=== PATIENT | male | born 2000 | race Caucasian/White ===

== ENCOUNTER 2018-12-11 14:23 | Emergency (ER) | payer MEDICAID ==
--- NOTE | 2018-12-11 16:11 | ED Physician Documentation ---
PD HPI LOWER EXT INJURY - Stated complaint Stated Complaint: INGROWN TOENAIL - Chief complaint Chief Complaint: Heent - History obtained from History obtained from: Patient - History of Present Illness PD HPI LOW EXT INJURY LOCATION: Right, Toe (great toe) Type of injury: Other (cut my toenail wrong.) Timing - onset: How many months ago (3 or 4 months ago) Worsened by: Moving, Palpating Associated symptoms: Swelling, Discolored Similar symptoms before: Has not had sx before - Additional information Additional information: The patient is a 18-year-old male who states he cut his left toenail wrong about 3 or 4 months ago, and then his toenail grew back "wrong." He has had pain and swelling at the medial aspect of the great toenail on his right foot since that time. He denies fever, numbness or weakness. He denies history of similar symptoms in the past. Review of Systems Constitutional: denies: Fever Skin: denies: Rash Musculoskeletal: reports: Extremity swelling (right great toe) Neurologic: denies: Focal weakness, Numbness PD PAST MEDICAL HISTORY - Past Medical History Past Medical History: No Endocrine/Autoimmune: None - Present Medications Home Medications: Ambulatory Orders Medication Instructions Recorded Confirmed cephALEXin [Cephalexin] 500 mg PO TID #20 tablet 12/11/18 - Allergies Allergies/Adverse Reactions: Allergies Allergy/AdvReac Type Severity Reaction Status Date / Time No Known Drug Allergies Allergy Verified 12/11/18 14:28 - Social History Does the pt smoke?: No Smoking Status: Never smoker PD ED PE NORMAL - Vitals Vital signs reviewed: Yes (Borderline systolic hypertension initially.) - General General: Alert and oriented X 3, Well developed/nourished - HEENT HEENT: Atraumatic - Respiratory Respiratory: No respiratory distress - Derm Derm: No rash - Extremities Extremities: Other (There is swelling and erythema at the medial aspect of his right great toenail, consistent with ingrown toenail. There is scant blood in the crease where the toenail transitions to the perionychium. Distal neurovascular is intact.) - Neuro Neuro: Alert and oriented X 3, No motor deficit, No sensory deficit Results - Vitals Vitals: Vital Signs - 24 hr 12/11/18 12/11/18 14:29 17:03 Temperature 36.7 C Heart Rate 68 78 Respiratory 16 16 Rate Blood Pressure 147/51 H 135/72 H O2 Saturation 99 99 Oxygen O2 Source Room air Procedures - General procedure General procedure: Excision of ingrown toenail right great toe. Digital nerve block using 1% lidocaine---good anesthetic effect. Excision medial aspect of nail---no purulent drainage. Tolerated well. Cephalexin administered. PD MEDICAL DECISION MAKING - ED course Complexity details: considered differential, d/w patient, d/w family ED course: The patient's presentation is significant for a an ingrown toenail of the right great toe. The medial paronychia is infected, without abscess. Treatment in the emergency department included excision of the ingrown toenail after digital block was performed using 1% lidocaine. Cephalexin 500 mg administered orally. Antibiotic ointment and gauze dressing was applied. I discussed with the patient and his father the expected course of healing, antibiotic treatment and outpatient follow-up, as well as potentially worrisome signs or symptoms that should prompt reevaluation in the emergency department. Departure - Departure Disposition: 01 Home, Self Care Clinical Impression: Ingrown right big toenail Condition: Stable Instructions: ED Ingrown Toenail Excised Prescriptions: cephALEXin [Cephalexin] 500 mg PO TID #20 tablet Comments: Keep your right foot elevated as much of the time as possible. Take cephalexin 3 times daily as prescribed. You can use Tylenol or ibuprofen if needed for pain or discomfort. Follow-up with primary physician within 2 weeks if possible. Call to schedule appointment. Return to the emergency department if you develop increasing pain, swelling, or otherwise worsening symptoms. Forms: Activity restrictions Discharge Date/Time: 12/11/18 17:07
[2018-12-11] MEDS ORDERED: cephALEXin 250 MG CAPSULE PO STA (16:50)
[2018-12-11] MEDS ORDERED: BACITRACIN OINT TOP ONE (16:53)
[2018-12-11 17:06] VITALS: BP 135/72
== END 2018-12-11 17:07 | disposition home or self-care (01) ==
LOC: ED 14:23
DX: L60.0 Ingrowing nail (principal); L03.031 Cellulitis of right toe
CPT/HCPCS: 11730; 99283; A9270

== ENCOUNTER 2019-01-25 12:31 | Emergency (ER) | payer MEDICAID ==
[2019-01-25 12:42] VITALS: BP 142/61
--- NOTE | 2019-01-25 14:56 | ED Physician Documentation ---
PD HPI SKIN - Stated complaint Stated Complaint: INGROWN TOENAIL - Chief complaint Chief Complaint: General - History obtained from History obtained from: Patient - History of Present Illness Timing - onset: How many days ago (several) Timing - duration: Days Timing - details: Abrupt onset (has had increased redness and swelling around toe quickly over just few days.), Still present Location: RLE (great toe nailbed) Quality / character: Painful, Discolored (red), Swelling Review of Systems Constitutional: denies: Fever, Chills Skin: reports: Lesions (redness around great toe) PD PAST MEDICAL HISTORY - Past Medical History Endocrine/Autoimmune: None - Present Medications Home Medications: Ambulatory Orders Medication Instructions Recorded Confirmed Doxycycline Hyclate 100 mg PO BID #14 capsule 01/25/19 Mupirocin 1 applic TP TID #15 g 01/25/19 Tramadol HCl 50 mg PO Q6H PRN #15 tablet 01/25/19 - Allergies Allergies/Adverse Reactions: Allergies Allergy/AdvReac Type Severity Reaction Status Date / Time No Known Drug Allergies Allergy Verified 01/25/19 12:42 - Social History Does the pt smoke?: No Smoking Status: Never smoker PD ED PE NORMAL - Vitals Vital signs reviewed: Yes - General General: Alert and oriented X 3, No acute distress, Well developed/nourished - Derm Derm: Normal color, Warm and dry - Extremities Extremities: Other (right great toe with redness and swelling and seems slightly ingrown nail at lateral corner. Some hypertrophic granulation tissue at medial corner. ) - Neuro Neuro: No motor deficit, No sensory deficit Results - Vitals Vitals: Oxygen O2 Source Room air Procedures - General procedure General procedure: scissors used to trim ingrown corner of nail without needing anesth. Departure - Departure Disposition: Home, Self Care Clinical Impression: Paronychia due to ingrown nail Condition: Stable Record reviewed to determine appropriate education?: Yes Instructions: ED Paronychia Ch Follow-Up: [facility] [Provider Group] Prescriptions: Doxycycline Hyclate 100 mg PO BID #14 capsule Mupirocin 1 applic TP TID #15 g Tramadol HCl 50 mg PO Q6H PRN #15 tablet PRN Reason: Pain Comments: Soak the toe in warm water couple times a day and apply mupirocin topical antibiotic. It does look like there is infection in the tissue around the nail so we will go with some oral antibiotics as well, doxycycline twice daily. Use an anti-inflammatory such as ibuprofen or naproxen. Add Tylenol if needed for pain. Can follow-up with the residential insurance inspector to see if they have more suggestions about this being recurrently ingrowing. I provided a referral name up in [place]. Discharge Date/Time: 01/25/19 15:29
[2019-01-25] MEDS ORDERED: MUPIROCIN 2% OINT 1 GM TOP STA (15:17)
[2019-01-25] MEDS ORDERED: IBUPROFEN 600 MG TABLET PO STA (15:17)
[2019-01-25] MEDS ORDERED: traMADol 50 MG TABLET PO STA (15:17)
[2019-01-25] MEDS ORDERED: DOXYCYCLINE 100 MG TABLET PO STA (15:17)
== END 2019-01-25 15:29 | disposition home or self-care (01) ==
LOC: ED 12:31
DX: L03.031 Cellulitis of right toe (principal); L60.0 Ingrowing nail
CPT/HCPCS: 99283; A9270

== ENCOUNTER 2020-01-26 08:54 | Outpatient (CLI) | payer SELFPAY | END 2020-01-26 08:55 | disposition critical access hospital (66) | LOC: EMS 08:54 | PROVIDERS: ATTEND Surgery | DX: K92.0 Hematemesis (principal) | CPT/HCPCS: A0425; A0427 ==

== ENCOUNTER 2020-01-26 09:26 | Emergency (ER) | payer SELFPAY ==
--- NOTE | 2020-01-26 09:40 | ED Physician Documentation ---
PD HPI NVD - Stated complaint Stated Complaint: VOMITING - History obtained from History obtained from: Patient - History of Present Illness Timing - onset: Enter time (0200), Last night Timing - duration: Hours Timing - details: Abrupt onset, Still present Associated symptoms: Abdominal pain, Hematemesis Contributing factors: Alcohol use Improved by: Vomiting, Meds Similar symptoms before: Has not had sx before Recently seen: Not recently seen - Additonal information Additional information: Previously well 19-year-old male went out fishing with his uncle over the weekend and started drinking again he usually has a pattern of binge drinking and he drank for 4 days straight. He developed nausea and vomiting beginning last night as well as some nominal pain and when he developed coffee-ground emesis she became concerned and called the ambulance. He is not lightheaded or dizzy he is nauseous and after receiving 4 mg of Zofran in the ambulance he feels much improved. He is received a liter of fluid as well. He is otherwise been well and denies any recent illness. Review of Systems Constitutional: denies: Fever, Chills Eyes: denies: Decreased vision Ears: denies: Ear pain Nose: denies: Rhinorrhea / runny nose, Congestion Throat: denies: Sore throat Cardiac: denies: Chest pain / pressure, Palpitations Respiratory: denies: Dyspnea, Cough GI: reports: Abdominal Pain, Nausea, Vomiting, Hematemesis : denies: Dysuria, Frequency Skin: denies: Rash Musculoskeletal: denies: Neck pain, Back pain, Extremity pain PD PAST MEDICAL HISTORY - Past Medical History Endocrine/Autoimmune: None - Present Medications Home Medications: Ambulatory Orders Medication Instructions Recorded Confirmed Ondansetron Odt [Zofran] 4 mg TL Q6H PRN #10 tablet 01/26/20 - Allergies Allergies/Adverse Reactions: Allergies Allergy/AdvReac Type Severity Reaction Status Date / Time No Known Drug Allergies Allergy Verified 01/26/20 09:42 - Social History Does the pt smoke?: No Smoking Status: Never smoker PD ED PE NORMAL - Vitals Vital signs reviewed: Yes (Hypertensive) - General General: Alert and oriented X 3, No acute distress, Well developed/nourished - HEENT HEENT: Atraumatic, PERRL, EOMI - Neck Neck: Supple, no meningeal sign, No bony TTP - Cardiac Cardiac: RRR, No murmur - Respiratory Respiratory: No respiratory distress, Clear bilaterally - Abdomen Abdomen: Normal bowel sounds, Soft, Non tender, Non distended, No organomegaly - Back Back: No CVA TTP, No spinal TTP - Derm Derm: Normal color, Warm and dry, No rash - Extremities Extremities: No deformity, No edema, No calf tenderness / cord - Neuro Neuro: Alert and oriented X 3, healthcare business analyst 2-12 intact, No motor deficit, No sensory deficit, Normal speech Eye Opening: Spontaneous Motor: Obeys Commands Verbal: Oriented GCS Score: 15 - Psych Psych: Normal mood, Normal affect Results - Vitals Vitals: Vital Signs - 24 hr 01/26/20 09:28 Temperature 37.5 C Heart Rate 92 Respiratory 16 Rate Blood Pressure 137/86 H O2 Saturation 97 Oxygen O2 Source Room air - Labs Labs: Laboratory Tests 01/26/20 01/26/20 01/26/20 09:38 09:55 09:55 WBC 6.2 RBC 4.86 Hgb 15.2 Hct 43.4 MCV 89.3 MCH 31.3 H MCHC 35.0 RDW 11.9 L Plt Count 231 MPV 9.5 Neut # (Auto) 3.8 Lymph # (Auto) 2.0 [place] # (Auto) 0.4 Eos # (Auto) 0.0 Baso # (Auto) 0.0 Absolute Nucleated RBC 0.00 Nucleated RBC % 0.0 Sodium 142 Potassium 3.6 Chloride 105 Carbon Dioxide 24 Anion Gap 13.0 BUN 8 Creatinine 0.8 Estimated GFR (MDRD) 122 Glucose 95 Calcium 8.1 L Total Bilirubin 1.1 H AST 20 ALT 18 Alkaline Phosphatase 64 Total Protein 6.6 L Albumin 3.8 Globulin 2.8 Albumin/Globulin Ratio 1.4 Lipase 24 Urine Color DARK YELLOW Urine Clarity CLEAR Urine pH 7.0 Ur Specific [place] 1.010 Urine Protein NEGATIVE Urine Glucose (UA) NEGATIVE Urine Ketones NEGATIVE Urine Occult Blood NEGATIVE Urine Nitrite NEGATIVE Urine Bilirubin NEGATIVE Urine Urobilinogen 0.2 (NORMAL) Ur Leukocyte Esterase NEGATIVE Ur Microscopic Review NOT INDICATED Urine Culture Comments NOT INDICATED Ethyl Alcohol 164.5 PD MEDICAL DECISION MAKING - ED course Complexity details: reviewed old records, reviewed results, re-evaluated patient, considered differential, d/w patient ED course: Previously well 19-year-old male presents to the emergency department with vomiting after drinking excessive alcohol. He had some coffee grounds in the vomitus as well as some small specks of blood and he became concerned. He has come to the emergency department he is hypertensive and feeling improved after receiving Zofran in the field. He is received a liter of saline intravenously. He is administered dexamethasone 10 mg intravenously as well. His blood counts were checked and they are stellar. There is no rise in the BUN to suggest di gestion of excessive blood. He responds to treatments and wants to go home. Departure - Departure Disposition: Home, Self Care Clinical Impression: Gastritis Qualifiers: Gastritis type: alcoholic Chronicity: acute Gastritis bleeding: with bleeding Qualified Code(s): K29.21 - Alcoholic gastritis with bleeding Condition: Stable Instructions: ED Gastritis Follow-Up: [facility] [Provider Group] Prescriptions: Ondansetron Odt [Zofran] 4 mg TL Q6H PRN #10 tablet PRN Reason: Nausea / Vomiting Comments: Today it appears the lining of your stomach is been irritated severely by the alcohol. There is evidence of some bleeding. The recommendation is to avoid a lcohol and to use a medication such as Pepcid AC or Nexium for the next week to reduce the acid in your stomach to let the stomach heal up. Use the Zofran as needed for nausea.
[2020-01-26 09:52] LABS: BILIRUBIN,URINE NEGATIVE (NEGATIVE); GLUCOSE, URINE (UA) NEGATIVE (NEGATIVE); KETONES,URINE (UA) NEGATIVE (NEGATIVE); LEUKOCYTE ESTERASE, URINE NEGATIVE (NEGATIVE); NITRITE,URINE NEGATIVE (NEGATIVE); OCCULT BLOOD,URINE NEGATIVE (NEGATIVE); PROTEIN,URINE NEGATIVE (NEGATIVE); UROBILINOGEN,URINE 0.2 (NORMAL) E.U./dL (NORMAL)
[2020-01-26 09:56] LABS: CLARITY,URINE CLEAR (CLEAR)
[2020-01-26 10:11] LABS: BASOPHILS % (AUTO) 0.6 %; EOSINOPHILS % (AUTO) 0.2 %; HGB - HEMOGLOBIN 15.2 g/dL (14.0-18.0); LYMPHOCYTES % (AUTO) 31.6 %; MEAN CORPUSCULAR HEMOGLOBIN 31.3 pg (27.0-31.0); MEAN CORPUSCULAR VOLUME 89.3 fL (80.0-94.0); MEAN PLATELET VOLUME 9.5 fL (7.4-11.4); MONOCYTES # (AUTO) 0.4 10^3/uL (0.0-1.0); MONOCYTES % (AUTO) 6.7 %; NEUTROPHILS # (AUTO) 3.8 10^3/uL (1.5-6.6); NEUTROPHILS % (AUTO) 60.6 %; PLT - PLATELET COUNT 231 10^3/uL (130-450); RED BLOOD COUNT 4.86 10^6/uL (4.70-6.10); RED CELL DISTRIBUTION WIDTH 11.9 % (12.0-15.0); WHITE BLOOD COUNT 6.2 x10^3/uL (4.8-10.8)
[2020-01-26 10:23] LABS: ALBUMIN 3.8 g/dL (3.2-5.5); ALBUMIN/GLOBULIN RATIO 1.4 (1.0-2.2); BILIRUBIN,TOTAL 1.1 mg/dL (0.2-1.0); CALCIUM 8.1 mg/dL (8.5-10.3); CREATININE 0.8 mg/dL (0.6-1.2); TOTAL PROTEIN 6.6 g/dL (6.7-8.2)
[2020-01-26 10:56] VITALS: BP 150/74
== END 2020-01-26 11:03 | disposition home or self-care (01) ==
LOC: EDUNIT# → ED 09:26
DX: K29.21 Alcoholic gastritis with bleeding (principal); F10.10 Alcohol abuse, uncomplicated; R03.0 Elevated blood-pressure reading, without diagnosis of hypertension
CPT/HCPCS: 36415; 80053; 80320; 81001; 81003; 83690; 85025; 87086; 99283; 99284

== ENCOUNTER 2020-01-26 15:30 | Emergency (ER) | payer SELFPAY ==
[2020-01-26 15:40] VITALS: BP 140/67
[2020-01-26] MEDS ORDERED: METOCLOPRAMIDE 10 MG/2 ML VIAL IVP STA (15:55)
[2020-01-26] MEDS ORDERED: SODIUM CHLORIDE 0.9% 1,000 ML IV STA (15:55)
--- NOTE | 2020-01-26 15:59 | ED Physician Documentation ---
PD HPI NVD - Stated complaint Stated Complaint: VOMITING - Chief complaint Chief Complaint: Abd Pain - History obtained from History obtained from: Patient (19-year-old gentleman was seen here earlier today for alcoholic gastritis with vomiting. He has continued to vomit since discharge. He denies alcohol use since this morning. The vomit is still dark. He has not filled the prescription for the antiemetics he was given earlier. No pain) Review of Systems Constitutional: denies: Fever, Chills Throat: denies: Dental pain / toothache, Sore throat Cardiac: denies: Chest pain / pressure, Palpitations GI: reports: Nausea, Vomiting. denies: Diarrhea PD PAST MEDICAL HISTORY - Past Medical History Cardiovascular: None Respiratory: None Neuro: None Endocrine/Autoimmune: None GI: None : None HEENT: None Psych: None Musculoskeletal: None Derm: None - Past Surgical History Past Surgical History: No - Present Medications Home Medications: Ambulatory Orders Medication Instructions Recorded Confirmed Ondansetron Odt [Zofran] 4 mg TL Q6H PRN #10 tablet 01/26/20 - Allergies Allergies/Adverse Reactions: Allergies Allergy/AdvReac Type Severity Reaction Status Date / Time No Known Drug Allergies Allergy Verified 01/26/20 15:40 - Social History Does the pt smoke?: No Smoking Status: Never smoker Does the pt drink ETOH?: Yes Does the pt have substance abuse?: Yes PD ED PE NORMAL - Vitals Vital signs reviewed: Yes - General General: Alert and oriented X 3, No acute distress - HEENT HEENT: Pharynx benign - Cardiac Cardiac: RRR, No murmur - Respiratory Respiratory: No respiratory distress, Clear bilaterally - Abdomen Abdomen: Non tender - Neuro Neuro: Alert and oriented X 3, Normal speech Results - Vitals Vitals: Vital Signs - 24 hr 01/26/20 15:37 Temperature 36.3 C L Heart Rate 112 H Respiratory 16 Rate Blood Pressure 140/67 H O2 Saturation 99 Oxygen O2 Source Room air - Labs Labs: Laboratory Tests 01/26/20 16:05 Hgb 16.2 Hct 44.7 PD MEDICAL DECISION MAKING - ED course ED course: 19-year-old gentleman presents with continued vomiting from alcohol use. Has not used those since his last visit earlier today. His H&H is stable. After the administration of Reglan and IV fluids he demanded to leave. I offered to give him something for anxiety which he was complaining of or have him finish his IV fluids and he did not want either. Departure - Departure Disposition: 01 Home, Self Care Clinical Impression: Vomiting Qualifiers: Vomiting type: unspecified Vomiting Intractability: non-intractable Nausea presence: with nausea Qualified Code(s): R11.2 - Nausea with vomiting, unspecified Condition: Good Record reviewed to determine appropriate education?: Yes Instructions: ED Nausea Vomiting Comments: Fill the prescription given by Dr Bradley earlier today. Return if worse. Do not drink alcohol.
[2020-01-26 16:13] LABS: HGB - HEMOGLOBIN 16.2 g/dL (14.0-18.0)
== END 2020-01-26 16:41 | disposition home or self-care (01) ==
LOC: ED 15:30
DX: R11.2 Nausea with vomiting, unspecified (principal); F10.10 Alcohol abuse, uncomplicated; F41.9 Anxiety disorder, unspecified
CPT/HCPCS: 36415; 85014; 85018; 96374; J2765

== ENCOUNTER 2020-08-31 12:27 | Outpatient (CLI) | payer MEDICAID ==
[2020-08-31 15:06] LABS: BASOPHILS % (AUTO) 0.6 %; EOSINOPHILS # (AUTO) 0.1 10^3/uL (0.0-0.7); EOSINOPHILS % (AUTO) 1.4 %; HGB - HEMOGLOBIN 15.6 g/dL (14.0-18.0); LYMPHOCYTES # (AUTO) 1.7 10^3/uL (1.5-3.5); LYMPHOCYTES % (AUTO) 46.9 %; MEAN CORPUSCULAR HEMOGLOBIN 30.1 pg (27.0-31.0); MEAN CORPUSCULAR VOLUME 88.4 fL (80.0-94.0); MEAN PLATELET VOLUME 10.1 fL (7.4-11.4); MONOCYTES # (AUTO) 0.4 10^3/uL (0.0-1.0); MONOCYTES % (AUTO) 12.2 %; NEUTROPHILS # (AUTO) 1.4 10^3/uL (1.5-6.6); NEUTROPHILS % (AUTO) 38.6 %; PLT - PLATELET COUNT 207 10^3/uL (130-450); RED BLOOD COUNT 5.19 10^6/uL (4.70-6.10); RED CELL DISTRIBUTION WIDTH 11.6 % (12.0-15.0); WHITE BLOOD COUNT 3.6 x10^3/uL (4.8-10.8)
[2020-08-31 17:45] LABS: ALBUMIN 4.6 g/dL (3.2-5.5); ALBUMIN/GLOBULIN RATIO 1.8 (1.0-2.2); ALKALINE PHOSPHATASE 57 IU/L (42-121); ALT ALANINE AMINOTRANSFERASE 13 IU/L (10-60); AST ASPARTATE AMINOTRANSFERASE 15 IU/L (10-42); BILIRUBIN,TOTAL 1.6 mg/dL (0.2-1.0); BUN - BLOOD UREA NITROGEN 12 mg/dL (6-20); CALCIUM 9.6 mg/dL (8.5-10.3); CARBON DIOXIDE - CO2 25 mmol/L (21-32); CHLORIDE 100 mmol/L (101-111); CHOL/HDL RATIO 2.9 (<5.0); CHOLESTEROL 171 mg/dL; CREATININE 0.8 mg/dL (0.6-1.2); GLUCOSE 82 mg/dL (70-100); HDL CHOLESTEROL 60 mg/dL; TOTAL PROTEIN 7.2 g/dL (6.7-8.2)
[2020-08-31 17:55] LABS: LDL CHOLESTEROL,CALCULATED 111 mg/dL; LDL/HDL RATIO 1.8 (<3.6); VLDL CHOLESTEROL 8 mg/dL
== END 2020-08-31 12:28 | disposition home or self-care (01) ==
LOC: LAB.S 12:27
PROVIDERS: ATTEND Physician Assistant
DX: Z00.00 Encounter for general adult medical examination without abnormal findings (principal); R53.83 Other fatigue
CPT/HCPCS: 36415; 80053; 80061; 83721; 85025

== ENCOUNTER 2020-12-09 10:09 | Emergency (ER) | payer MEDICAID ==
[2020-12-09] MEDS ORDERED: DEXAMETHASONE 10 MG/ML VIAL IVP STA (11:07)
[2020-12-09] MEDS ORDERED: FOLIC ACID INJ 1 MG, THIAMINE INJ 100 MG, MAGNESIUM SULFATE 2 GM, MULTIVITAMIN 10 ML in... IV STA ×5 (11:07)
[2020-12-09] MEDS ORDERED: LORazepam 2 MG/ML VIAL IVP STA (11:07)
--- NOTE | 2020-12-09 11:10 | ED Physician Documentation ---
History of Present Illness - Stated complaint Stated Complaint: ANXIETY - Chief complaint Chief Complaint: Neuro - History obtained from History obtained from: Patient - History of Present Illness Timing: Today - Additonal information Additional information: 20-year-old male with a history of alcoholic binge drinking has developed nausea and vomiting and feels horrible. He states that he has been drinking again for 9 days and drinking daily mostly beer and some hard liquor mixed in. He has had issues previously with alcoholic gastritis and alcohol withdrawal. He states that he had more than a month of sobriety prior to binging recently. Denies suicidal or homicidal ideation. Review of Systems Constitutional: reports: Fatigue. denies: Fever, Chills Eyes: denies: Decreased vision Ears: denies: Ear pain Nose: denies: Rhinorrhea / runny nose, Congestion Throat: denies: Sore throat Cardiac: denies: Chest pain / pressure, Palpitations Respiratory: denies: Dyspnea, Cough GI: reports: Abdominal Pain, Nausea, Vomiting : denies: Dysuria, Frequency Skin: denies: Rash Musculoskeletal: denies: Neck pain, Back pain, Extremity pain PD PAST MEDICAL HISTORY - Past Medical History Cardiovascular: None Respiratory: None Neuro: None Endocrine/Autoimmune: None GI: None : None HEENT: None Psych: None Musculoskeletal: None Derm: None - Past Surgical History Past Surgical History: No - Present Medications Home Medications: Ambulatory Orders Medication Instructions Recorded Confirmed Ondansetron Odt [Zofran] 4 mg TL Q6H PRN #10 tablet 01/26/20 chlordiazePOXIDE [Librium] 25 - 50 mg PO Q6H PRN #9 cap 12/09/20 - Allergies Allergies/Adverse Reactions: Allergies Allergy/AdvReac Type Severity Reaction Status Date / Time No Known Drug Allergies Allergy Verified 12/09/20 10:42 - Social History Does the pt smoke?: No Smoking Status: Never smoker Does the pt drink ETOH?: Yes Does the pt have substance abuse?: Yes PD ED PE NORMAL - Vitals Vital signs reviewed: Yes (hypertensive mild ) - General General: Alert and oriented X 3, No acute distress, Well developed/nourished - HEENT HEENT: Atraumatic, PERRL, EOMI - Neck Neck: Supple, no meningeal sign, No bony TTP - Cardiac Cardiac: RRR, No murmur - Respiratory Respiratory: No respiratory distress, Clear bilaterally - Abdomen Abdomen: Normal bowel sounds, Soft, Non tender, Non distended, No organomegaly - Back Back: No CVA TTP, No spinal TTP - Derm Derm: Normal color, Warm and dry, No rash - Extremities Extremities: No deformity, No edema - Neuro Neuro: Alert and oriented X 3, profile grinder technician 2-12 intact, No motor deficit, No sensory deficit, Normal speech Eye Opening: Spontaneous Motor: Obeys Commands Verbal: Oriented GCS Score: 15 - Psych Psych: Normal mood, Normal affect Results - Vitals Vitals: Vital Signs - 24 hr 12/09/20 12/09/20 10:26 13:10 Temperature 36.3 C L 37.2 C Heart Rate 88 99 Respiratory 16 18 Rate Blood Pressure 137/84 H 143/65 H O2 Saturation 99 99 Oxygen O2 Source Room air - Labs Labs: Laboratory Tests 12/09/20 12/09/20 11:20 11:20 WBC 6.4 RBC 4.87 Hgb 15.2 Hct 42.8 MCV 87.9 MCH 31.2 H MCHC 35.5 RDW 11.7 L Plt Count 198 MPV 9.0 Neut # (Auto) 4.5 Lymph # (Auto) 1.4 L [place] # (Auto) 0.4 Eos # (Auto) 0.0 Baso # (Auto) 0.0 Absolute Nucleated RBC 0.00 Nucleated RBC % 0.0 Sodium 138 Potassium 3.5 Chloride 98 L Carbon Dioxide 28 Anion Gap 12.0 BUN 8 Creatinine 0.6 Estimated GFR (MDRD) 168 Glucose 100 Calcium 9.0 Total Bilirubin 1.1 H AST 34 ALT 30 Alkaline Phosphatase 80 Total Protein 7.9 Albumin 4.9 Globulin 3.0 Albumin/Globulin Ratio 1.6 Lipase 32 Ethyl Alcohol 127.6 PD MEDICAL DECISION MAKING - ED course Complexity details: reviewed old records, reviewed results, re-evaluated patien t, considered differential, d/w patient ED course: 20-year-old male with history of alcoholic gastritis and related binge drinking has been binge drinking again and he comes in today with the chief complaint that he does not want to go through alcohol withdrawal again. He has had medication for alcohol withdrawal previously and it was helpful.Here in the emergency department patient is administered intravenous banana bag dexamethasone and Ativan. He has marked improvement and social services coordinator is consulted for alcohol resources. We will prescribe Librium for withdrawal symptoms. Departure - Departure Disposition: 01 Home, Self Care Clinical Impression: Alcohol withdrawal Qualifiers: Complication of substance-induced condition: uncomplicated Qualified Code(s): F10.230 - Alcohol dependence with withdrawal, uncomplicated Condition: Stable Instructions: ED Withdrawal Alcohol Follow-Up: [facility] [Provider Group] Prescriptions: chlordiazePOXIDE [Librium] 25 - 50 mg PO Q6H PRN #9 cap PRN Reason: alcohol withdrawal symptoms. Discharge Date/Time: 12/09/20 13:11
[2020-12-09 11:34] LABS: BASOPHILS % (AUTO) 0.6 %; EOSINOPHILS % (AUTO) 0.3 %; HCT - HEMATOCRIT 42.8 % (42.0-52.0); HGB - HEMOGLOBIN 15.2 g/dL (14.0-18.0); LYMPHOCYTES # (AUTO) 1.4 10^3/uL (1.5-3.5); LYMPHOCYTES % (AUTO) 22.5 %; MEAN CORPUSCULAR HEMOGLOBIN 31.2 pg (27.0-31.0); MEAN CORPUSCULAR HGB CONC 35.5 g/dL (32.0-36.0); MEAN CORPUSCULAR VOLUME 87.9 fL (80.0-94.0); MONOCYTES # (AUTO) 0.4 10^3/uL (0.0-1.0); MONOCYTES % (AUTO) 6.7 %; NEUTROPHILS # (AUTO) 4.5 10^3/uL (1.5-6.6); NEUTROPHILS % (AUTO) 69.7 %; PLT - PLATELET COUNT 198 10^3/uL (130-450); RED BLOOD COUNT 4.87 10^6/uL (4.70-6.10); RED CELL DISTRIBUTION WIDTH 11.7 % (12.0-15.0); WHITE BLOOD COUNT 6.4 x10^3/uL (4.8-10.8)
[2020-12-09 11:47] LABS: ALBUMIN 4.9 g/dL (3.2-5.5); ALBUMIN/GLOBULIN RATIO 1.6 (1.0-2.2); BILIRUBIN,TOTAL 1.1 mg/dL (0.2-1.0); CREATININE 0.6 mg/dL (0.6-1.2); ETOH - ETHANOL 127.6 mg/dL; POTASSIUM 3.5 mmol/L (3.5-5.0); TOTAL PROTEIN 7.9 g/dL (6.7-8.2)
[2020-12-09] MEDS ORDERED: chlordiazePOXIDE 25 MG CAPSULE PO STA (12:17)
[2020-12-09 13:11] VITALS: BP 143/65
== END 2020-12-09 13:11 | disposition home or self-care (01) ==
LOC: ED 10:09
DX: F10.230 Alcohol dependence with withdrawal, uncomplicated (principal)
CPT/HCPCS: 36415; 80053; 80320; 83690; 85025; 96374; 96375; 99283; A9270; J2060; J3411

== ENCOUNTER 2022-05-09 12:48 | Outpatient (CLI) | payer MEDICAID | END 2022-05-09 12:49 | disposition critical access hospital (66) | LOC: EMS 12:48 | DX: R11.2 Nausea with vomiting, unspecified (principal); Z72.89 Other problems related to lifestyle | CPT/HCPCS: A0425; A0429; A0999 ==

== ENCOUNTER 2022-05-09 13:12 | Emergency (ER) | payer MEDICAID ==
[2022-05-09 13:28] VITALS: BP 150/79
[2022-05-09 13:46] LABS: BASOPHILS # (AUTO) 0.1 10^3/uL (0.0-0.1); BASOPHILS % (AUTO) 0.9 %; EOSINOPHILS % (AUTO) 0.1 %; HCT - HEMATOCRIT 46.8 % (42.0-52.0); HGB - HEMOGLOBIN 16.8 g/dL (14.0-18.0); LYMPHOCYTES # (AUTO) 1.7 10^3/uL (1.5-3.5); LYMPHOCYTES % (AUTO) 25.1 %; MEAN CORPUSCULAR HEMOGLOBIN 31.4 pg (27.0-31.0); MEAN CORPUSCULAR HGB CONC 35.9 g/dL (32.0-36.0); MEAN CORPUSCULAR VOLUME 87.5 fL (80.0-94.0); MONOCYTES # (AUTO) 0.5 10^3/uL (0.0-1.0); MONOCYTES % (AUTO) 7.1 %; NEUTROPHILS # (AUTO) 4.5 10^3/uL (1.5-6.6); NEUTROPHILS % (AUTO) 66.7 %; PLT - PLATELET COUNT 241 10^3/uL (130-450); RED BLOOD COUNT 5.35 10^6/uL (4.70-6.10); RED CELL DISTRIBUTION WIDTH 11.9 % (12.0-15.0); WHITE BLOOD COUNT 6.8 x10^3/uL (4.8-10.8)
[2022-05-09 14:10] LABS: ACETAMINOPHEN < 10 ug/mL (10-30); ALBUMIN 4.9 g/dL (3.2-5.5); ALBUMIN/GLOBULIN RATIO 1.6 (1.0-2.2); ALKALINE PHOSPHATASE 86 IU/L (42-121); ALT ALANINE AMINOTRANSFERASE 18 IU/L (10-60); AST ASPARTATE AMINOTRANSFERASE 25 IU/L (10-42); BILIRUBIN,TOTAL 0.7 mg/dL (0.2-1.0); BUN - BLOOD UREA NITROGEN 6 mg/dL (6-20); CALCIUM 8.9 mg/dL (8.5-10.3); CARBON DIOXIDE - CO2 27 mmol/L (21-32); CHLORIDE 101 mmol/L (101-111); CREATININE 0.6 mg/dL (0.6-1.2); ETOH - ETHANOL 382.3 mg/dL; GFR - MDRD 167 (>89); GLUCOSE 87 mg/dL (70-100); LIPASE 185 U/L (22-51); SALICYLATE < 6.0 mg/dL; SODIUM 141 mmol/L (135-145)
== END 2022-05-09 15:37 | disposition left against medical advice (07) ==
LOC: EDUNIT# → ED 13:12
DX: Z53.21 Procedure and treatment not carried out due to patient leaving prior to being seen by health care provider (principal)
CPT/HCPCS: 36415; 80053; 80307; 80320; 80329; 83690; 84443; 85025

== ENCOUNTER 2022-06-15 21:47 | Emergency (ER) | payer MEDICAID ==
[2022-06-15] MEDS ORDERED: ONDANSETRON ODT 4 MG TABLET TL STA (22:01)
[2022-06-15 22:49] LABS: BASOPHILS % (AUTO) 0.2 %; HCT - HEMATOCRIT 46.1 % (42.0-52.0); HGB - HEMOGLOBIN 15.9 g/dL (14.0-18.0); LYMPHOCYTES # (AUTO) 1.1 10^3/uL (1.5-3.5); LYMPHOCYTES % (AUTO) 8.7 %; MEAN CORPUSCULAR HEMOGLOBIN 31.1 pg (27.0-31.0); MEAN CORPUSCULAR HGB CONC 34.5 g/dL (32.0-36.0); MEAN PLATELET VOLUME 8.8 fL (7.4-11.4); MONOCYTES # (AUTO) 0.4 10^3/uL (0.0-1.0); MONOCYTES % (AUTO) 3.7 %; NEUTROPHILS # (AUTO) 10.5 10^3/uL (1.5-6.6); NEUTROPHILS % (AUTO) 87.2 %; PLT - PLATELET COUNT 250 10^3/uL (130-450); RED BLOOD COUNT 5.12 10^6/uL (4.70-6.10)
[2022-06-15 23:04] LABS: ALBUMIN/GLOBULIN RATIO 1.4 (1.0-2.2); CALCIUM 9.4 mg/dL (8.5-10.3); CREATININE 0.7 mg/dL (0.6-1.2); POTASSIUM 3.9 mmol/L (3.5-5.0); TOTAL PROTEIN 8.5 g/dL (6.7-8.2)
[2022-06-16] MEDS ORDERED: ONDANSETRON 4 MG/2 ML VIAL IVP STA (01:00)
[2022-06-16] MEDS ORDERED: PHENobarbital 65 MG/ML VIAL IV STA ×2 (01:00→03:12)
[2022-06-16] MEDS ORDERED: SODIUM CHLORIDE 0.9% 1,000 ML IV STA (01:00)
[2022-06-16] MEDS ORDERED: LORazepam 2 MG/ML VIAL IVP STA (01:00)
[2022-06-16 01:35] LABS: BILIRUBIN,URINE NEGATIVE (NEGATIVE); GLUCOSE, URINE (UA) NEGATIVE (NEGATIVE); KETONES,URINE (UA) NEGATIVE (NEGATIVE); LEUKOCYTE ESTERASE, URINE NEGATIVE (NEGATIVE); NITRITE,URINE NEGATIVE (NEGATIVE); OCCULT BLOOD,URINE NEGATIVE (NEGATIVE); PH,URINE 8.5 PH (5.0-7.5); PROTEIN,URINE 100 mg/dL (NEGATIVE); UROBILINOGEN,URINE 1 (NORMAL) E.U./dL (NORMAL)
[2022-06-16 01:36] LABS: CLARITY,URINE CLEAR (CLEAR)
[2022-06-16 01:41] LABS: BACTERIA,URINE Rare /HPF (None Seen); RBC,URINE 0-5 /HPF (0-5); SQUAMOUS EPITHELIAL CELL,UR RARE Squamous (<= Few); WBC,URINE 0-3 /HPF (0-3)
[2022-06-16 01:42] LABS: MUCUS,URINE Marked Strands
--- NOTE | 2022-06-16 01:51 | ED Physician Documentation ---
PD HPI NVD - Stated complaint Stated Complaint: ALCOHOL WITHDRAWAL - Chief complaint Chief Complaint: Abd Pain - History obtained from History obtained from: Patient - History of Present Illness Timing - onset: How many hours ago (has had nausea and vomiting, headache, anxiety and tremors the past few hours. Had binge drank for couple of weeks. Stopped yesterday but had some drink 6 hours ago for symptoms. Wanting meds for withdrawal.) Timing - duration: Hours Timing - details: Gradual onset, Still present Associated symptoms: Loss of appetite. No: Fever, Abdominal pain, Hematemesis Contributing factors: Alcohol use. No: Sick contact Improved by: No: Vomiting Worsened by: Eating Similar symptoms before: Diagnosis (alcohol withdrawal, denies prior seizures nor hospitalization.) Recently seen: Not recently seen Review of Systems Constitutional: denies: Fever, Chills Nose: denies: Rhinorrhea / runny nose, Congestion Throat: denies: Sore throat Respiratory: denies: Cough GI: reports: Abdominal Pain (some epigastric area), Nausea, Vomiting. denies: D iarrhea, Hematemesis Skin: denies: Rash, Lesions Neurologic: reports: Generalized weakness. denies: Altered mental status, Headache PD PAST MEDICAL HISTORY - Past Medical History Cardiovascular: None Respiratory: None Neuro: None Endocrine/Autoimmune: None GI: None : None HEENT: None Psych: None Musculoskeletal: None Derm: None - Past Surgical History Past Surgical History: No - Present Medications Home Medications: Ambulatory Orders Medication Instructions Recorded Confirmed Ondansetron Odt [Zofran] 4 mg TL Q6H PRN #10 tablet 01/26/20 chlordiazePOXIDE [Librium] 25 - 50 mg PO Q6H PRN #9 cap 12/09/20 LORazepam [Ativan] 1 mg PO Q6H PRN #15 tablet 06/16/22 Ondansetron Odt [Zofran] 4 mg TL Q6H PRN #10 tablet 06/16/22 PHENobarbitaL [Phenobarbital] 30 mg PO DAILY 6 Days #9 tablet 06/16/22 - Allergies Allergies/Adverse Reactions: Allergies Allergy/AdvReac Type Severity Reaction Status Date / Time No Known Drug Allergies Allergy Verified 06/16/22 15:17 - Social History Does the pt smoke?: No Smoking Status: Never smoker Does the pt drink ETOH?: Yes Does the pt have substance abuse?: Yes - Immunizations Immunizations are current?: Yes - POLST Patient has POLST: No PD ED PE NORMAL - Vitals Vital signs reviewed: Yes - General General: Alert and oriented X 3, Well developed/nourished, Other (shaky and some tremor. Oriented and conversant. ) - HEENT HEENT: Pharynx benign - Neck Neck: Supple, no meningeal sign, No adenopathy - Cardiac Cardiac: RRR, No murmur - Respiratory Respiratory: Clear bilaterally - Abdomen Abdomen: Normal bowel sounds, Soft, Non distended, No organomegaly, Other (mild tender epigastric without guarding nor percussion tenderness. ) - Derm Derm: Normal color, Warm and dry - Extremities Extremities: Normal ROM s pain, No edema, No calf tenderness / cord - Neuro Neuro: Alert and oriented X 3, No motor deficit, Normal speech Results - Vitals Vitals: Oxygen O2 Source Room air - Labs Labs: Laboratory Tests 06/15/22 06/15/22 06/16/22 22:43 22:43 01:26 PST WBC 12.0 H RBC 5.12 Hgb 15.9 Hct 46.1 MCV 90.0 MCH 31.1 H MCHC 34.5 RDW 12.0 Plt Count 250 MPV 8.8 Neut # (Auto) 10.5 H Lymph # (Auto) 1.1 [place] # (Auto) 0.4 Eos # (Auto) 0.0 Baso # (Auto) 0.0 Absolute Nucleated RBC 0.00 Nucleated RBC % 0.0 Sodium 142 Potassium 3.9 Chloride 100 L Carbon Dioxide 28 Anion Gap 14.0 H BUN 12 Creatinine 0.7 Estimated GFR (MDRD) 139 Glucose 121 H Calcium 9.4 Total Bilirubin 1.0 AST 78 H ALT 58 Alkaline Phosphatase 109 Total Protein 8.5 H Albumin 5.0 Globulin 3.5 Albumin/Globulin Ratio 1.4 Lipase 65 H Urine Color DARK YELLOW Urine Clarity CLEAR Urine pH 8.5 H Ur Specific [place] 1.015 Urine Protein 100 H Urine Glucose (UA) NEGATIVE Urine Ketones NEGATIVE Urine Occult Blood NEGATIVE Urine Nitrite NEGATIVE Urine Bilirubin NEGATIVE Urine Urobilinogen 1 (NORMAL) Ur Leukocyte Esterase NEGATIVE Urine RBC 0-5 Urine WBC 0-3 Ur Squamous Epith Cells RARE Squamous Urine Bacteria Rare Urine Mucus Marked Strands Ur Microscopic Review INDICATED Urine Culture Comments NOT INDICATED PD MEDICAL DECISION MAKING - ED course Complexity details: re-evaluated patient (improved with IV fluids and meds. Has ride coming back for him. Given number for [facility] to call in AM if wishing inpatient detox. He did not at this time.), considered differential, d/w patient Departure - Departure Disposition: 01 Home, Self Care Clinical Impression: Alcohol consumption binge drinking, Nausea and vomiting Alcohol withdrawal Qualifiers: Complication of substance-induced condition: uncomplicated Qualified Code(s): F10.930 - Alcohol use, unspecified with withdrawal, uncomplicated Condition: Stable Record reviewed to determine appropriate education?: Yes Instructions: ED Withdrawal Alcohol Follow-Up: [facility] [place] [Provider Group] [facility] [Provider Group] Prescriptions: LORazepam [Ativan] 1 mg PO Q6H PRN #15 tablet PRN Reason: Alcohol Withdrawal PHENobarbitaL [Phenobarbital] 30 mg PO DAILY 6 Days #9 tablet Ondansetron Odt [Zofran] 4 mg TL Q6H PRN #10 tablet PRN Reason: Nausea / Vomiting Comments: We have given you some IV fluids along with medication for withdrawal and nausea here in the ER. You seem to be having less symptoms. I wrote prescription for withdrawal medications: Phenobarbital 30 mg twice daily for 3 days then once daily for 3 days. Lorazepam 1 mg every 6-8 hours if needed for withdrawal symptoms not relieved with the phenobarb. Also prescription for ondansetron/Zofran to help with nausea and vomiting. Avoid alcohol. You can follow-up with [facility] alcohol treatment center/acute detox if needed. You would have to call them to have a phone interview to discuss admission there. The current location address for [facility] is [address] [place] [address]. The contact number for [facility] is [phone]. Follow-up with the primary care provider regarding longer-term treatment for avoiding alcohol such as Antabuse. This is typically moderated through a primary care provider for longer term use. I provided phone numbers for [facility] primary care in [place] and also [facility] (the phone number I had available was for [facility] but they do have a office in [place] as well. You can see if they are accepting new patients or your particular insurance). Return if worse symptoms despite the above medicines. Discharge Date/Time: 06/16/22 04:45
[2022-06-16] MEDS ORDERED: PHENobarbital 65 MG/ML VIAL IM STA (02:34)
[2022-06-16 04:59] VITALS: BP 138/89
== END 2022-06-16 04:45 | disposition home or self-care (01) ==
LOC: ED 21:47
DX: F10.930 Alcohol use, unspecified with withdrawal, uncomplicated (principal); R11.2 Nausea with vomiting, unspecified
CPT/HCPCS: 36415; 80053; 81001; 83690; 85025; 96361; 96374; 96375; 99284; J2060; Q0162; 80320; 81003; 87086

== ENCOUNTER 2022-06-16 14:46 | Emergency (ER) | payer MEDICAID ==
[2022-06-16 15:23] VITALS: BP 153/72
== END 2022-06-16 15:40 | disposition left against medical advice (07) ==
LOC: ED 14:46
DX: Z53.21 Procedure and treatment not carried out due to patient leaving prior to being seen by health care provider (principal)

== ENCOUNTER 2022-12-02 08:41 | Emergency (ER) | payer MEDICAID ==
[2022-12-02] MEDS ORDERED: SODIUM CHLORIDE 0.9% 1,000 ML IV STA (09:06)
[2022-12-02] MEDS ORDERED: THIAMINE 100 MG TABLET PO STA (09:07)
[2022-12-02] MEDS ORDERED: MAGNESIUM SULFATE 2 GRAM 2 GM/50 ML BAG IV ONE (09:07)
[2022-12-02] MEDS ORDERED: LORazepam 2 MG/ML VIAL IVP STA (09:08)
--- NOTE | 2022-12-02 09:08 | ED Physician Documentation ---
PD HPI SEIZURE - Stated complaint Stated Complaint: SEIZURES - History obtained from History obtained from: Patient - History of Present Illness Timing - onset: Today Witnessed: Unwitnessed Number of seizures: Multiple Description of seizure activity: Generalized Injury during seizure: None Associated symptoms: No: Headache, Nausea / vomiting History of seizures: Prior EtOH wdrawal sz Contributing factors: EtOH withdrawal (tried going without alcohol and was only off less than a day. After the seizure, he states he drank several drinks to lessen the withdrawal.) Similar symptoms before: Diagnosis (He states history of alcoholism with a pproximately 2/5 of liquor daily. He starts drinking upon awakening due to jittery shaky. He drinks continually through the day.) Recently seen: Not recently seen Review of Systems Constitutional: denies: Fever, Chills Nose: denies: Rhinorrhea / runny nose, Congestion Throat: denies: Sore throat Respiratory: denies: Cough GI: denies: Abdominal Pain, Vomiting, Diarrhea, Bloody / black stool Neurologic: denies: Focal weakness, Headache, Head injury PD PAST MEDICAL HISTORY - Past Medical History Cardiovascular: None Respiratory: None Neuro: None Endocrine/Autoimmune: None GI: None : None HEENT: None Psych: None Musculoskeletal: None Derm: None - Past Surgical History Past Surgical History: No - Present Medications Home Medications: Ambulatory Orders Medication Instructions Recorded Confirmed LORazepam [Ativan] 1 mg PO Q6H PRN #25 tablet 12/02/22 PHENobarbitaL [Phenobarbital] 30 mg PO BID 6 Days #9 tablet 12/02/22 Promethazine [Phenergan] 25 mg PO Q6H PRN #20 tab 12/02/22 - Allergies Allergies/Adverse Reactions: Allergies Allergy/AdvReac Type Severity Reaction Status Date / Time No Known Drug Allergies Allergy Verified 12/02/22 08:59 - Social History Does the pt smoke?: No Smoking Status: Never smoker Does the pt drink ETOH?: Yes ETOH Use: Liquor (2 Fifths daily) Does the pt have substance abuse?: Yes Substance Use and Type: Marijuana - Immunizations Immunizations are current?: Yes - POLST Patient has POLST: No PD ED PE NORMAL - Vitals Vital signs reviewed: Yes - General General: Alert and oriented X 3, Well developed/nourished - HEENT HEENT: Atraumatic - Neck Neck: Supple, no meningeal sign, No adenopathy - Cardiac Cardiac: RRR (mild tachycardia. ), No murmur - Respiratory Respiratory: Clear bilaterally - Abdomen Abdomen: Soft, Non tender, Non distended - Derm Derm: Normal color, Warm and dry - Neuro Neuro: Alert and oriented X 3, No motor deficit, Normal speech Results - Vitals Vitals: Vital Signs - 24 hr 12/02/22 12/02/22 12/02/22 08:49 11:06 12:02 Temperature 36.8 C Heart Rate 97 96 106 H Respiratory 16 14 18 Rate Blood Pressure 151/82 H 148/71 H 139/70 H O2 Saturation 96 99 97 Oxygen O2 Source Room air - Labs Labs: Laboratory Tests 12/02/22 12/02/22 12/02/22 09:18 09:18 09:18 WBC 6.7 RBC 5.15 Hgb 15.7 Hct 45.5 MCV 88.3 MCH 30.5 MCHC 34.5 RDW 12.5 Plt Count 230 MPV 9.9 Neut # (Auto) 4.5 Lymph # (Auto) 1.8 [place] # (Auto) 0.4 Eos # (Auto) 0.0 Baso # (Auto) 0.0 Absolute Nucleated RBC 0.00 Nucleated RBC % 0.0 Manual Slide Review Indicated Platelet Morphology NORMAL APPEARANCE Sodium 143 Potassium 3.8 Chloride 106 Carbon Dioxide 29 Anion Gap 8.0 BUN 7 Creatinine 0.8 Estimated GFR (MDRD) 119 Glucose 116 H Calcium 9.0 Magnesium 2.3 Total Bilirubin 0.5 AST 23 ALT 20 Alkaline Phosphatase 64 Total Protein 7.6 Albumin 4.8 Globulin 2.8 Albumin/Globulin Ratio 1.7 Lipase 576 H TSH 0.48 Urine Color Urine Clarity Urine pH Ur Specific [place] Urine Protein Urine Glucose (UA) Urine Ketones Urine Occult Blood Urine Nitrite Urine Bilirubin Urine Urobilinogen Ur Leukocyte Esterase Ur Microscopic Review Urine Culture Comments Salicylates < 6.0 Urine Opiates Screen Ur Oxycodone Screen Urine Methadone Screen Ur Propoxyphene Screen Acetaminophen < 10 L Ur Barbiturates Screen Ur Tricyclics Screen Ur Phencyclidine Scrn Ur Amphetamine Screen U Methamphetamines Scrn U Benzodiazepines Scrn Urine Cocaine Screen U Cannabinoids Screen Ethyl Alcohol 292.6 SARS-CoV-2 (PCR) 12/02/22 12/02/22 09:22 09:28 WBC RBC Hgb Hct MCV MCH MCHC RDW Plt Count MPV Neut # (Auto) Lymph # (Auto) [place] # (Auto) Eos # (Auto) Baso # (Auto) Absolute Nucleated RBC Nucleated RBC % Manual Slide Review Platelet Morphology Sodium Potassium Chloride Carbon Dioxide Anion Gap BUN Creatinine Estimated GFR (MDRD) Glucose Calcium Magnesium Total Bilirubin AST ALT Alkaline Phosphatase Total Protein Albumin Globulin Albumin/Globulin Ratio Lipase TSH Urine Color LT. YELLOW Urine Clarity CLEAR Urine pH 7.0 Ur Specific [place] <=1.005 Urine Protein NEGATIVE Urine Glucose (UA) NEGATIVE Urine Ketones NEGATIVE Urine Occult Blood NEGATIVE Urine Nitrite NEGATIVE Urine Bilirubin NEGATIVE Urine Urobilinogen 0.2 (NORMAL) Ur Leukocyte Esterase NEGATIVE Ur Microscopic Review NOT INDICATED Urine Culture Comments NOT INDICATED Salicylates Urine Opiates Screen NEGATIVE Ur Oxycodone Screen NEGATIVE Urine Methadone Screen NEGATIVE Ur Propoxyphene Screen NEGATIVE Acetaminophen Ur Barbiturates Screen NEGATIVE Ur Tricyclics Screen NEGATIVE Ur Phencyclidine Scrn NEGATIVE Ur Amphetamine Screen NEGATIVE U Methamphetamines Scrn NEGATIVE U Benzodiazepines Scrn NEGATIVE Urine Cocaine Screen NEGATIVE U Cannabinoids Screen NEGATIVE Ethyl Alcohol SARS-CoV-2 (PCR) NOT DETECTED PD Medical Decision Making - ED course Complexity details: reviewed results, re-evaluated patient (He remained with mild symptoms to minimal symptoms here. His alcohol level was still elevated but he will be developing withdrawal symptoms soon enough so gave some dosing of medicines.), considered differential (History of alcoholism and alcohol withdrawal seizures. He states he been without alcohol for a day today and a half and had a seizure. He drank then this morning to treat his symptoms. Seeking detox.), d/w patient ED course: The nursing staff talk to [facility] and sent over his labs. They do have beds available. They are going to call the patient to talk to him. The patient states he would like to be discharged with prescriptions. He will talk to [facility] when they call him and decide on the detox facility versus home treatment. He is discharged stable Departure - Departure Disposition: 01 Home, Self Care Clinical Impression: Elevated lipase Alcohol withdrawal seizure Qualifiers: Complication of substance-induced condition: uncomplicated Qualified Code(s): F10.930 - Alcohol use, unspecified with withdrawal, uncomplicated Alcohol dependence Qualifiers: Substance use status: unspecified alcohol-induced disorder Qualified Code(s): F10.29 - Alcohol dependence with unspecified alcohol-induced disorder Condition: Stable Record reviewed to determine appropriate education?: Yes Instructions: ED Seizure Alcohol Withdrawal Follow-Up: [facility] [place] [Provider Group] [facility] [place] [Provider Group] Prescriptions: LORazepam [Ativan] 1 mg PO Q6H PRN #25 tablet PRN Reason: Alcohol Withdrawal Promethazine [Phenergan] 25 mg PO Q6H PRN #20 tab PRN Reason: Nausea / Vomiting PHENobarbitaL [Phenobarbital] 30 mg PO BID 6 Days #9 tablet Comments: On your blood test, you do have an elevation of the lipase which signifies some inflammation of the pancreas. Clear liquid diet for a day or 2 to minimize irritation of the pancreas. Obviously avoid alcohol. To help with your withdrawal symptoms, I would suggest a combination of phenobarbital twice daily for 3 days then once daily for 3 days. This gives a baseline level of medication to help with the withdrawal. To that add lorazepam/Ativan every 4-6 hours if needed for withdrawal symptoms. You can use promethazine if needed for nausea. Tylenol if needed for pains. I sent your prescriptions to [facility] in [place]. [facility] should call your back later to discuss potential detox treatment at their facility. Discharge Date/Time: 12/02/22 12:06
[2022-12-02 09:26] LABS: BASOPHILS % (AUTO) 0.4 %; EOSINOPHILS % (AUTO) 0.1 %; HCT - HEMATOCRIT 45.5 % (42.0-52.0); HGB - HEMOGLOBIN 15.7 g/dL (14.0-18.0); LYMPHOCYTES # (AUTO) 1.8 10^3/uL (1.5-3.5); LYMPHOCYTES % (AUTO) 26.9 %; MEAN CORPUSCULAR HEMOGLOBIN 30.5 pg (27.0-31.0); MEAN CORPUSCULAR HGB CONC 34.5 g/dL (32.0-36.0); MEAN CORPUSCULAR VOLUME 88.3 fL (80.0-94.0); MEAN PLATELET VOLUME 9.9 fL (7.4-11.4); MONOCYTES # (AUTO) 0.4 10^3/uL (0.0-1.0); MONOCYTES % (AUTO) 5.5 %; NEUTROPHILS # (AUTO) 4.5 10^3/uL (1.5-6.6); NEUTROPHILS % (AUTO) 66.7 %; PLT - PLATELET COUNT 230 10^3/uL (130-450); RED BLOOD COUNT 5.15 10^6/uL (4.70-6.10); RED CELL DISTRIBUTION WIDTH 12.5 % (12.0-15.0); WHITE BLOOD COUNT 6.7 x10^3/uL (4.8-10.8)
[2022-12-02 09:27] LABS: MUDS CUTOFF CONCENTRATIONS CUTOFF CONC BELOW:
[2022-12-02 09:27] LABS: SLIDE REVIEW? Indicated
[2022-12-02 09:32] LABS: BILIRUBIN,URINE NEGATIVE (NEGATIVE); GLUCOSE, URINE (UA) NEGATIVE (NEGATIVE); KETONES,URINE (UA) NEGATIVE (NEGATIVE); LEUKOCYTE ESTERASE, URINE NEGATIVE (NEGATIVE); NITRITE,URINE NEGATIVE (NEGATIVE); OCCULT BLOOD,URINE NEGATIVE (NEGATIVE); PROTEIN,URINE NEGATIVE (NEGATIVE); UROBILINOGEN,URINE 0.2 (NORMAL) E.U./dL (NORMAL)
[2022-12-02 09:37] LABS: CLARITY,URINE CLEAR (CLEAR)
[2022-12-02 09:43] LABS: AMPHETAMINE SCREEN,URINE NEGATIVE (NEGATIVE); BARBITURATE SCREEN,UR NEGATIVE (NEGATIVE); BENZODIAZEPINES SCREEN, URINE NEGATIVE (NEGATIVE); COCAINE SCREEN URINE NEGATIVE (NEGATIVE); METHADONE SCREEN, URINE NEGATIVE (NEGATIVE); METHAMPHETAMINES SCREEN, URINE NEGATIVE (NEGATIVE); OPIATE SCREEN, URINE NEGATIVE (NEGATIVE); OXYCODONE SCREEN, URINE NEGATIVE (NEGATIVE); PROPOXYPHENE SCREEN, URINE NEGATIVE (NEGATIVE); THC CANNABINOID SCREEN, URINE NEGATIVE (NEGATIVE); TRICYCLIC ANTIDEPRESSANT,URINE NEGATIVE (NEGATIVE)
[2022-12-02 09:46] LABS: PLATELET MORPHOLOGY NORMAL APPEARANCE (NORMAL)
[2022-12-02 10:50] LABS: ACETAMINOPHEN < 10 ug/mL (10-30); ALBUMIN 4.8 g/dL (3.2-5.5); ALBUMIN/GLOBULIN RATIO 1.7 (1.0-2.2); ALKALINE PHOSPHATASE 64 IU/L (42-121); ALT ALANINE AMINOTRANSFERASE 20 IU/L (10-60); AST ASPARTATE AMINOTRANSFERASE 23 IU/L (10-42); BILIRUBIN,TOTAL 0.5 mg/dL (0.2-1.0); BUN - BLOOD UREA NITROGEN 7 mg/dL (6-20); CARBON DIOXIDE - CO2 29 mmol/L (21-32); CHLORIDE 106 mmol/L (101-111); CREATININE 0.8 mg/dL (0.6-1.2); ETOH - ETHANOL 292.6 mg/dL; GFR - MDRD 119 (>89); GLUCOSE 116 mg/dL (70-100); MAGNESIUM 2.3 mg/dL (1.7-2.8); POTASSIUM 3.8 mmol/L (3.5-5.0); SALICYLATE < 6.0 mg/dL; SODIUM 143 mmol/L (135-145); TOTAL PROTEIN 7.6 g/dL (6.7-8.2)
[2022-12-02 10:51] LABS: LIPASE 576 U/L (22-51)
[2022-12-02] MEDS ORDERED: PHENobarbital 65 MG/ML VIAL IV STA (11:40)
[2022-12-02 12:06] VITALS: BP 139/70
== END 2022-12-02 12:06 | disposition home or self-care (01) ==
LOC: ED 08:41
DX: F10.239 Alcohol dependence with withdrawal, unspecified (principal); F10.29 Alcohol dependence with unspecified alcohol-induced disorder; R56.9 Unspecified convulsions; E78.41 Elevated Lipoprotein(a); Z20.822 Contact with and (suspected) exposure to COVID-19
CPT/HCPCS: 36415; 80053; 80306; 80307; 80320; 80329; 81003; 83690; 83735; 84443; 85025; 87635; 96365; 96375; 99284; A9270; J2060; 81001; 87086

== ENCOUNTER 2022-12-26 14:58 | Emergency (ER) | payer MEDICAID ==
[2022-12-26 15:12] VITALS: BP 157/68
[2022-12-26] MEDS ORDERED: SODIUM CHLORIDE 0.9% 1,000 ML IV STA (15:34)
--- NOTE | 2022-12-26 15:34 | ED Physician Documentation ---
History of Present Illness - Stated complaint Stated Complaint: ETOH,SZ - Chief complaint Chief Complaint: Neuro - Additonal information Additional information: 22-year-old male presents emergency department for evaluation of seizure. He do es have an alcohol use disorder and reports binge drinking about 15 beers a day for last 2 weeks. He has not stopped drinking and reports to me that he is intoxicated/drunk right now. States he was sitting on the couch when he began to have generalized body shaking. He did not lose consciousness. He was seen several weeks ago for seizures thought to be related to alcohol use. At that time patient did not want inpatient detox and preferred to try oral medications i.e. phenobarbital at home. He reported that those were helpful. Patient does want to stop drinking but is not yet ready to enter detox. I have called [facility] and they do report that they have beds available. I am encouraging the patient to call them to discuss this. On presentation he is alert well-appearing. He does smell heavily of alcohol. He has no obvious focal or lateralizing deficits. He denies chest pain shortness of breath. No abdominal pain. Review of Systems Constitutional: denies: Fever, Chills Ears: reports: Reviewed and negative Throat: reports: Reviewed and negative Cardiac: reports: Reviewed and negative : reports: Reviewed and negative Skin: reports: Reviewed and negative Neurologic: reports: Seizure PD PAST MEDICAL HISTORY - Past Medical History Cardiovascular: None Respiratory: None Neuro: None Endocrine/Autoimmune: None GI: None : None HEENT: None Psych: None Musculoskeletal: None Derm: None - Past Surgical History Past Surgical History: No - Present Medications Home Medications: Ambulatory Orders Medication Instructions Recorded Confirmed LORazepam [Ativan] 1 mg PO TID PRN #10 tablet 12/26/22 PHENobarbitaL [Phenobarbital] 30 mg PO BID 6 Days #12 tablet 12/26/22 - Allergies Allergies/Adverse Reactions: Allergies Allergy/AdvReac Type Severity Reaction Status Date / Time No Known Drug Allergies Allergy Verified 12/26/22 15:10 - Social History Does the pt smoke?: No Smoking Status: Never smoker Does the pt drink ETOH?: Yes Does the pt have substance abuse?: Yes - Immunizations Immunizations are current?: Yes - POLST Patient has POLST: No PD ED PE NORMAL - General General: Alert and oriented X 3, No acute distress - HEENT HEENT: PERRL - Neck Neck: Supple, no meningeal sign, No adenopathy - Cardiac Cardiac: RRR, No murmur - Respiratory Respiratory: No respiratory distress, Clear bilaterally - Abdomen Abdomen: Normal bowel sounds, Soft - Back Back: No CVA TTP - Derm Derm: Normal color, Warm and dry, No rash - Extremities Extremities: No deformity - Neuro Neuro: Alert and oriented X 3 Eye Opening: Spontaneous Motor: Obeys Commands Verbal: Oriented GCS Score: 15 Results - Vitals Vitals: Vital Signs - 24 hr 12/26/22 15:04 Temperature 36.9 C Heart Rate 91 Respiratory 18 Rate Blood Pressure 157/68 H O2 Saturation 97 Oxygen O2 Source Room air - Labs Labs: Laboratory Tests 12/26/22 12/26/22 15:30 15:30 WBC 8.8 RBC 5.09 Hgb 15.6 Hct 44.0 MCV 86.4 MCH 30.6 MCHC 35.5 RDW 12.0 Plt Count 224 MPV 9.0 Neut # (Auto) 6.0 Lymph # (Auto) 2.2 [place] # (Auto) 0.6 Eos # (Auto) 0.0 Baso # (Auto) 0.0 Absolute Nucleated RBC 0.00 Nucleated RBC % 0.0 Sodium 139 Potassium 3.9 Chloride 101 Carbon Dioxide 27 Anion Gap 11.0 BUN 10 Creatinine 0.5 L Estimated GFR (MDRD) 204 Glucose 93 Calcium 8.7 Total Bilirubin 0.8 AST 20 ALT 21 Alkaline Phosphatase 93 Total Protein 7.8 Albumin 4.5 Globulin 3.3 Albumin/Globulin Ratio 1.4 Lipase 61 H Ethyl Alcohol 217.6 PD Medical Decision Making - ED course Complexity details: reviewed results, re-evaluated patient, d/w patient ED course: 22-year-old male who has a known alcohol abuse disorder presents emergency department after he reports that he had a seizure at home. However he did not lapse in consciousness during this. He had generalized shakes and tremors. On presentation the emergency department he is alert and well-appearing. He does smell heavily of alcohol and describes himself as intoxicated. His blood alcohol is greater than 200. I did obtain CBC, electrolytes as well as the EtOH. There were no worrisome abnormalities including of the renal or liver function test. Clinically the patient does not appear to be in alcohol withdrawal though he is at risk for it given his abuse history and a history of withdrawal. I did call [facility] detox facility for him and they have beds available but the patient declines to go to inpatient detox today. Therefore he is discharged home with a prescription for phenobarbital to help with withdrawal symptoms as well as Ativan. He was cautioned to avoid stopping alcohol suddenly as this was life- threatening. He would not remain in the emergency department for further testing or evaluation and is discharged home in stable but serious condition Departure - Departure Disposition: 01 Home, Self Care Clinical Impression: Seizure Alcohol dependence Qualifiers: Substance use status: unspecified alcohol-induced disorder Qualified Code(s): F10.29 - Alcohol dependence with unspecified alcohol-induced disorder Condition: Serious Record reviewed to determine appropriate education?: Yes Instructions: Addiction Alcohol Prescriptions: LORazepam [Ativan] 1 mg PO TID PRN #10 tablet PRN Reason: Alcohol Withdrawal PHENobarbitaL [Phenobarbital] 30 mg PO BID 6 Days #12 tablet Comments: You came to the emergency department today because she had a seizure. You have been binge drinking for several weeks. You do not appear to be in withdrawal from alcohol at the time of this ER visit though you are at high risk to develop tremors and seizures if you stop drinking. We did speak with you extensively about contacting [facility] alcohol stabilization center in [place]. They do have beds available but you have declined to call them to start detox. If at any point you are ready to enter into detox please call [phone]. To help with your withdrawal symptoms we are starting you on a combination of famotidine barbital that you can take twice daily for the next several days as well as a very limited amount of Ativan to be used as needed. These medications were sent to the [facility] in [place]. Your labs today did not show any worrisome findings but I encourage you to attempt to stop drinking in a controlled fashion by using detox as soon as possible to prevent the development of cirrhosis moving forward
[2022-12-26 15:39] LABS: BASOPHILS % (AUTO) 0.3 %; EOSINOPHILS % (AUTO) 0.1 %; HGB - HEMOGLOBIN 15.6 g/dL (14.0-18.0); LYMPHOCYTES # (AUTO) 2.2 10^3/uL (1.5-3.5); LYMPHOCYTES % (AUTO) 24.3 %; MEAN CORPUSCULAR HEMOGLOBIN 30.6 pg (27.0-31.0); MEAN CORPUSCULAR HGB CONC 35.5 g/dL (32.0-36.0); MEAN CORPUSCULAR VOLUME 86.4 fL (80.0-94.0); MONOCYTES # (AUTO) 0.6 10^3/uL (0.0-1.0); MONOCYTES % (AUTO) 7.2 %; NEUTROPHILS % (AUTO) 67.8 %; PLT - PLATELET COUNT 224 10^3/uL (130-450); RED BLOOD COUNT 5.09 10^6/uL (4.70-6.10); WHITE BLOOD COUNT 8.8 x10^3/uL (4.8-10.8)
[2022-12-26 15:51] LABS: ALBUMIN 4.5 g/dL (3.2-5.5); ALBUMIN/GLOBULIN RATIO 1.4 (1.0-2.2); BILIRUBIN,TOTAL 0.8 mg/dL (0.2-1.0); CALCIUM 8.7 mg/dL (8.5-10.3); CREATININE 0.5 mg/dL (0.6-1.2); ETOH - ETHANOL 217.6 mg/dL; POTASSIUM 3.9 mmol/L (3.5-5.0); TOTAL PROTEIN 7.8 g/dL (6.7-8.2)
[2022-12-26 16:10] LABS: BILIRUBIN,URINE NEGATIVE (NEGATIVE); GLUCOSE, URINE (UA) NEGATIVE (NEGATIVE); KETONES,URINE (UA) NEGATIVE (NEGATIVE); LEUKOCYTE ESTERASE, URINE NEGATIVE (NEGATIVE); NITRITE,URINE NEGATIVE (NEGATIVE); OCCULT BLOOD,URINE NEGATIVE (NEGATIVE); PROTEIN,URINE NEGATIVE (NEGATIVE); UROBILINOGEN,URINE 0.2 (NORMAL) E.U./dL (NORMAL)
[2022-12-26 16:11] LABS: CLARITY,URINE CLEAR (CLEAR)
== END 2022-12-26 16:25 | disposition home or self-care (01) ==
LOC: ED 14:58
DX: R56.9 Unspecified convulsions (principal); F10.29 Alcohol dependence with unspecified alcohol-induced disorder
CPT/HCPCS: 36415; 80053; 80320; 81001; 81003; 83690; 85025; 87086; 99284

== ENCOUNTER 2022-12-26 23:15 | Emergency (ER) | payer MEDICAID ==
--- NOTE | 2022-12-27 01:28 | ED Physician Documentation ---
History of Present Illness - Stated complaint Stated Complaint: DETOX - Chief complaint Chief Complaint: Neuro - History obtained from History obtained from: Patient - Additonal information Additional information: 22-year-old man presents after being seen here earlier today with recommendation to go to [facility] for detox. Patient presents to the emergency department stating that he has been having some visual hallucinations since 6 PM after taking 2 Ativan and 1 phenobarbital at 4 PM. Patient denies SI and HI.He is mostly concerned that he will be unable to sleep tonight. PD PAST MEDICAL HISTORY - Past Medical History Past Medical History: No Cardiovascular: None Respiratory: None Neuro: None Endocrine/Autoimmune: None GI: None : None HEENT: None Psych: None Musculoskeletal: None Derm: None - Past Surgical History Past Surgical History: No - Present Medications Home Medications: Ambulatory Orders Medication Instructions Recorded Confirmed LORazepam [Ativan] 1 mg PO TID PRN #10 tablet 12/26/22 12/26/22 PHENobarbitaL [Phenobarbital] 30 mg PO BID 6 Days #12 tablet 12/26/22 12/26/22 - Allergies Allergies/Adverse Reactions: Allergies Allergy/AdvReac Type Severity Reaction Status Date / Time No Known Drug Allergies Allergy Verified 12/26/22 15:10 - Social History Does the pt smoke?: No Smoking Status: Never smoker Does the pt drink ETOH?: Yes Does the pt have substance abuse?: Yes - Immunizations Immunizations are current?: Yes - POLST Patient has POLST: No PD ED PE NORMAL - Vitals Vital signs reviewed: Yes - General General: Alert and oriented X 3, No acute distress, Well developed/nourished - HEENT HEENT: Atraumatic, PERRL, EOMI - Neck Neck: Supple, no meningeal sign - Cardiac Cardiac: RRR - Respiratory Respiratory: No respiratory distress, Clear bilaterally - Abdomen Abdomen: Non tender, Non distended - Derm Derm: Normal color, Warm and dry Results - Vitals Vitals: Vital Signs - 24 hr 12/26/22 23:35 Temperature 37.0 C Heart Rate 62 Respiratory 18 Rate Blood Pressure 143/74 H O2 Saturation 98 Oxygen O2 Source Room air PD Medical Decision Making - ED course ED course: Patient slept comfortably in the emergency department for couple hours. I discussed with him that [facility] has beds available and he can call them in the morning and he is amenable to discharge. Return precautions given. Departure - Departure Disposition: 01 Home, Self Care Clinical Impression: Alcohol abuse Condition: Stable Instructions: ED Alcohol Abuse Comments: Follow-up with [facility] detox facility in the morning - Call [phone] for intake.
[2022-12-27 01:33] VITALS: BP 123/71
== END 2022-12-27 01:31 | disposition home or self-care (01) ==
LOC: ED 23:15
DX: F10.10 Alcohol abuse, uncomplicated (principal)

== ENCOUNTER 2023-02-22 04:49 | Emergency (ER) | payer SELFPAY ==
--- NOTE | 2023-02-22 04:47 | ED Physician Documentation ---
History of Present Illness - Stated complaint Stated Complaint: ETOH - History obtained from History obtained from: Patient, EMS - Additonal information Additional information: BIBA. HPI from EMS and patient. Patient c/o nausea, vomiting since earlier this evening. Tonight he noticed small amount bright red blood in emesis (no clots). He denies pain including abdominal pain. He says he had been on a drinking binge over past 2-3 days, drinks liquor and strong (high-alcohol content) beer. He is worried about alcohol withdrawal. He has had previous [facility] ED visits for similar problems/concerns but has not yet been evaluated at a treatment center such as [facility]. He denies SI/HI/AH/VH. Review of Systems Cardiac: denies: Reviewed and negative Respiratory: denies: Reviewed and negative GI: reports: Nausea, Vomiting, Hematemesis. denies: Abdominal Pain, Constipation, Diarrhea, Bloody / black stool PD PAST MEDICAL HISTORY - Past Medical History Past Medical History: No - Present Medications Home Medications: Ambulatory Orders Medication Instructions Recorded Confirmed Ondansetron Odt [Zofran] 4 mg TL Q6H PRN #15 tablet 02/23/23 Pantoprazole [Protonix] 40 mg PO DAILY 30 Days #30 tablet 02/23/23 - Allergies Allergies/Adverse Reactions: Allergies Allergy/AdvReac Type Severity Reaction Status Date / Time No Known Drug Allergies Allergy Verified 02/23/23 08:03 - Social History Does the pt drink ETOH?: Yes ETOH Use: Beer, Liquor PD ED PE NORMAL - Vitals Vital signs reviewed: Yes - General General: Alert and oriented X 3, No acute distress, Well developed/nourished - HEENT HEENT: Moist mucous membranes - Cardiac Cardiac: RRR, No murmur - Respiratory Respiratory: No respiratory distress, Clear bilaterally - Abdomen Abdomen: Normal bowel sounds, Soft, Non tender, Non distended - Derm Derm: Normal color, Warm and dry - Neuro Neuro: Alert and oriented X 3 Eye Opening: Spontaneous Motor: Obeys Commands Verbal: Oriented GCS Score: 15 - Psych Psych: Normal mood, Normal affect Results - Vitals Vitals: Oxygen O2 Source Room air - Labs Labs: Laboratory Tests 02/22/23 02/22/23 02/22/23 05:05 05:05 05:19 WBC 7.5 RBC 5.00 Hgb 15.3 Hct 43.6 MCV 87.2 MCH 30.6 MCHC 35.1 RDW 11.7 L Plt Count 216 MPV 9.5 Neut # (Auto) 4.6 Lymph # (Auto) 2.3 [place] # (Auto) 0.5 Eos # (Auto) 0.0 Baso # (Auto) 0.1 Absolute Nucleated RBC 0.00 Nucleated RBC % 0.0 Sodium 139 Potassium 3.6 Chloride 97 L Carbon Dioxide 30 Anion Gap 12.0 BUN 8 Creatinine 0.6 Estimated GFR (MDRD) 166 Glucose 111 H Calcium 8.6 Magnesium 1.9 Total Bilirubin 0.8 AST 37 ALT 32 Alkaline Phosphatase 77 Total Protein 7.5 Albumin 4.2 Globulin 3.3 Albumin/Globulin Ratio 1.3 Lipase 67 H Urine Opiates Screen NEGATIVE Ur Oxycodone Screen NEGATIVE Urine Methadone Screen NEGATIVE Ur Propoxyphene Screen NEGATIVE Ur Barbiturates Screen NEGATIVE Ur Tricyclics Screen NEGATIVE Ur Phencyclidine Scrn NEGATIVE Ur Amphetamine Screen NEGATIVE U Methamphetamines Scrn NEGATIVE U Benzodiazepines Scrn NEGATIVE Urine Cocaine Screen NEGATIVE U Cannabinoids Screen NEGATIVE Ethyl Alcohol 268.2 PD Medical Decision Making - ED course Complexity details: reviewed results, re-evaluated patient, considered differential, d/w patient ED course: Serums ethanol level is 268. Otherwise no remarkable/concerning test results (mildly elevated lipase noted (60) but normal LFTs and normal CBC). Early in stay, I discussed with patient what the goals of, and plan for, this ED visit are; specifically, symptom control, checking lab tests, and reevaluations periodically to include discussion of options for detox such as [facility]. He seemed completely comfortable with this plan, voicing no disagreement or alternative suggestions or thoughts. Patient is given 1 liter NS for rehydration along with 4mg IV zofran for nausea and 40mg IV protonix for presumed alcoholic gastritis. Prior to reevaluation, I was informed by ED RN that patient had taken his IV out and was not only demanding to leave ED immediately but was starting to walk out of ED. I approached patient who was then standing in the ED hallway, and I asked him to please step back into his room so we could discuss why he wants to leave. He tells me he feels well and no longer wants any further emergent testing, treatment, nor interested in any discussion regarding follow up including detox options. He agreed to wait another minute only for d/c instructions; I included information on the [facility] recovery center in d/c instructions. Departure - Departure Disposition: 01 Home, Self Care Clinical Impression: Alcohol abuse Condition: Good Instructions: ED Alcohol Abuse Comments: I would encourage you to seek detox from alcohol. One option to consider is [facility] in [place]. You can contact them at . Discharge Date/Time: 02/22/23 06:40
[2023-02-22] MEDS ORDERED: ONDANSETRON 4 MG/2 ML VIAL IVP STA (05:04)
[2023-02-22] MEDS ORDERED: PANTOPRAZOLE 40 MG VIAL IVP STA (05:04)
[2023-02-22] MEDS ORDERED: SODIUM CHLORIDE 0.9% 1,000 ML IV STA (05:08)
[2023-02-22 05:09] LABS: BASOPHILS # (AUTO) 0.1 10^3/uL (0.0-0.1); BASOPHILS % (AUTO) 0.8 %; EOSINOPHILS % (AUTO) 0.4 %; HCT - HEMATOCRIT 43.6 % (42.0-52.0); HGB - HEMOGLOBIN 15.3 g/dL (14.0-18.0); LYMPHOCYTES # (AUTO) 2.3 10^3/uL (1.5-3.5); LYMPHOCYTES % (AUTO) 29.9 %; MEAN CORPUSCULAR HEMOGLOBIN 30.6 pg (27.0-31.0); MEAN CORPUSCULAR HGB CONC 35.1 g/dL (32.0-36.0); MEAN CORPUSCULAR VOLUME 87.2 fL (80.0-94.0); MEAN PLATELET VOLUME 9.5 fL (7.4-11.4); MONOCYTES # (AUTO) 0.5 10^3/uL (0.0-1.0); NEUTROPHILS # (AUTO) 4.6 10^3/uL (1.5-6.6); NEUTROPHILS % (AUTO) 61.6 %; PLT - PLATELET COUNT 216 10^3/uL (130-450); RED CELL DISTRIBUTION WIDTH 11.7 % (12.0-15.0); WHITE BLOOD COUNT 7.5 x10^3/uL (4.8-10.8)
[2023-02-22 05:19] LABS: ALBUMIN 4.2 g/dL (3.2-5.5); ALBUMIN/GLOBULIN RATIO 1.3 (1.0-2.2); BILIRUBIN,TOTAL 0.8 mg/dL (0.2-1.0); CALCIUM 8.6 mg/dL (8.5-10.3); CREATININE 0.6 mg/dL (0.6-1.2); ETOH - ETHANOL 268.2 mg/dL; MAGNESIUM 1.9 mg/dL (1.7-2.8); POTASSIUM 3.6 mmol/L (3.5-5.0); TOTAL PROTEIN 7.5 g/dL (6.7-8.2)
[2023-02-22 05:26] LABS: MUDS CUTOFF CONCENTRATIONS CUTOFF CONC BELOW:
[2023-02-22 05:54] LABS: AMPHETAMINE SCREEN,URINE NEGATIVE (NEGATIVE); BARBITURATE SCREEN,UR NEGATIVE (NEGATIVE); BENZODIAZEPINES SCREEN, URINE NEGATIVE (NEGATIVE); COCAINE SCREEN URINE NEGATIVE (NEGATIVE); METHADONE SCREEN, URINE NEGATIVE (NEGATIVE); METHAMPHETAMINES SCREEN, URINE NEGATIVE (NEGATIVE); OPIATE SCREEN, URINE NEGATIVE (NEGATIVE); OXYCODONE SCREEN, URINE NEGATIVE (NEGATIVE); PROPOXYPHENE SCREEN, URINE NEGATIVE (NEGATIVE); THC CANNABINOID SCREEN, URINE NEGATIVE (NEGATIVE); TRICYCLIC ANTIDEPRESSANT,URINE NEGATIVE (NEGATIVE)
[2023-02-22 06:19] VITALS: BP 132/90
== END 2023-02-22 06:40 | disposition home or self-care (01) ==
LOC: EDUNIT# → ED 04:49
DX: F10.10 Alcohol abuse, uncomplicated (principal); Y90.8 Blood alcohol level of 240 mg/100 ml or more
CPT/HCPCS: 36415; 80053; 80306; 80320; 83690; 83735; 85025; 96374; 96375; 99284

== ENCOUNTER 2023-02-22 08:55 | Emergency (ER) | payer MEDICAID | END 2023-02-22 09:20 | disposition left against medical advice (07) | LOC: ED 08:55 | DX: Z53.21 Procedure and treatment not carried out due to patient leaving prior to being seen by health care provider (principal) ==

== ENCOUNTER 2023-02-23 07:55 | Emergency (ER) | payer SELFPAY ==
--- NOTE | 2023-02-23 08:11 | ED Physician Documentation ---
PD HPI NVD - Stated complaint Stated Complaint: VOMIT,ETOH - Chief complaint Chief Complaint: Abd Pain - History obtained from History obtained from: Patient - History of Present Illness Timing - onset: Last night Timing - details: Still present, Waxing and waning (He has been having upper abdominal pain to some degree over several days to week. More noted with drinking and eating. It was worse a day or 2 ago. Seen in the ER. He had felt better on discharge but worse again the last several hours.) Associated symptoms: Abdominal pain, Loss of appetite. No: Fever, Chest pain, Hematemesis, Melena Contributing factors: Alcohol use. 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 denies: Diarrhea, Hematemesis (he noted possible small streak of blood in emesis) : denies: Dysuria, Frequency PD PAST MEDICAL HISTORY - Past Medical History Past Medical History: Yes Cardiovascular: None Respiratory: None Neuro: None Endocrine/Autoimmune: None GI: Pancreatitis : None HEENT: None Psych: None Musculoskeletal: None Derm: None - Past Surgical History Past Surgical History: No - Present Medications Home Medications: Ambulatory Orders Medication Instructions Recorded Confirmed Ondansetron Odt [Zofran] 4 mg TL Q6H PRN #15 tablet 02/23/23 Pantoprazole [Protonix] 40 mg PO DAILY 30 Days #30 tablet 02/23/23 - Allergies Allergies/Adverse Reactions: Allergies Allergy/AdvReac Type Severity Reaction Status Date / Time No Known Drug Allergies Allergy Verified 02/23/23 08:03 - Living Situation Living Arrangement: reports: At home - Social History Does the pt smoke?: No Smoking Status: Never smoker Does the pt drink ETOH?: Yes ETOH Use: Beer Does the pt have substance abuse?: Yes - Immunizations Immunizations are current?: Yes - POLST Patient has POLST: No PD ED PE NORMAL - Vitals Vital signs reviewed: Yes - General General: Alert and oriented X 3, Well developed/nourished - HEENT HEENT: Pharynx benign - Neck Neck: Supple, no meningeal sign, No adenopathy - Cardiac Cardiac: RRR, No murmur - Respiratory Respiratory: Clear bilaterally - Abdomen Abdomen: Normal bowel sounds, Soft, Non distended, No organomegaly, Other (mild tender epigastric without guarding nor percussion tenderness. ) - Derm Derm: Normal color, Warm and dry - Extremities Extremities: Normal ROM s pain, No edema - Neuro Neuro: Alert and oriented X 3, No motor deficit, Normal speech Results - Vitals Vitals: Vital Signs - 24 hr 02/23/23 02/23/23 02/23/23 08:04 08:29 10:16 Temperature 36.3 C L Heart Rate 102 H 83 87 Respiratory 16 18 14 Rate Blood Pressure 144/69 H 154/86 H 138/64 H O2 Saturation 97 97 96 02/23/23 02/23/23 02/23/23 11:06 12:29 13:20 Temperature Heart Rate 110 H 91 92 Respiratory 14 14 16 Rate Blood Pressure 124/60 114/84 H 143/61 H O2 Saturation 96 96 97 02/23/23 02/23/23 14:25 14:57 Temperature 36.9 C Heart Rate 101 H 64 Respiratory 16 16 Rate Blood Pressure 129/50 L 151/63 H O2 Saturation 99 95 Oxygen O2 Source Room air - Labs Labs: Laboratory Tests 02/23/23 02/23/23 02/23/23 08:23 08:23 09:25 WBC 12.4 H RBC 4.52 L Hgb 13.9 L Hct 39.5 L MCV 87.4 MCH 30.8 MCHC 35.2 RDW 11.9 L Plt Count 165 MPV 8.8 Neut # (Auto) 10.2 H Lymph # (Auto) 1.4 L [place] # (Auto) 0.7 Eos # (Auto) 0.0 Baso # (Auto) 0.0 Absolute Nucleated RBC 0.00 Nucleated RBC % 0.0 Sodium 136 Potassium 3.7 Chloride 97 L Carbon Dioxide 28 Anion Gap 11.0 BUN 12 Creatinine 0.6 Estimated GFR (MDRD) 166 Glucose 118 H Calcium 8.3 L Magnesium 1.9 Total Bilirubin 1.0 AST 62 H ALT 36 Alkaline Phosphatase 73 Total Protein 7.1 Albumin 4.0 Globulin 3.1 Albumin/Globulin Ratio 1.3 Lipase 28 Ethyl Alcohol 150.7 SARS-CoV-2 (PCR) NOT DETECTED PD Medical Decision Making - ED course Complexity details: re-evaluated patient, considered differential (He has had similar episodes in the past related to alcohol use with gastritis and pancreatitis. We will give IV fluids and medications as well as some medication to avert withdrawal which she will likely have soon. Recheck blood test for lipase and liver function.), d/w patient Reviewed Lab Results: His lipase had been slightly above normal 2 days ago and is now in the normal range. LFTs are okay. His white count is normal. He was given IV fluids along with ondansetron for nausea and famotidine acid change management consultant. He was having some shakiness as well and mild tachycardia and given Ativan and phenobarbital at low-dose. Repeat Ativan also given. He was having much less shakiness and nausea he. Calm and relaxed. He states he would be interested in detox. The center in [place] did not have any beds available. We are checking with [facility]. They did interview and talk with the patient and are considering it at this time. We have not yet heard back and its been a couple of hours. He was given repeat doses of Librium orally to help with withdrawal symptoms. This seems to be helping him adequately enough every couple of hours. ED course: The patient is having improved symptoms regarding withdrawal and nausea. He is able to take sips here. His labs are looking good and minimally elevated lipase from previous is now better. I consider him medically cleared and stable at this time for detox. The patient did well after some IV fluids and antiemetic. He was given Zofran and famotidine. He is able to take sips of water and some bites of crackers. His withdrawal symptoms are improved with IV dose of phenobarb and Ativan. Subsequently he is given oral doses of Librium every 1-1/2 to 2 hours to help with his symptoms. This has been adequately improving it. [facility] did interview the patient and considered him for acceptance. It was 2 or 3 hours process of the end interview and then hearing back from them but ultimately they did call back saying they would accept him. At this point we can discharge him from the ER to go to [facility]. He is calling for a ride. I will give him another dose of Librium prior to discharge so that it keeps him more comfortable in the interval from here to there. Departure - Departure Disposition: 01 Home, Self Care Clinical Impression: Nausea and vomiting, Gastritis due to alcohol without hemorrhage, Alcohol use disorder Condition: Stable Record reviewed to determine appropriate education?: Yes Instructions: ED Nausea Vomiting Prescriptions: Pantoprazole [Protonix] 40 mg PO DAILY 30 Days #30 tablet Ondansetron Odt [Zofran] 4 mg TL Q6H PRN #15 tablet PRN Reason: Nausea / Vomiting Comments: I would suggest some acid reducing medicine such as pantoprazole or omeprazole daily for the next month to help with the stomach irritation and healing. Ondansetron every 4-6 hours if needed for nausea. Antacids such as Maalox or Mylanta as needed for stomach discomfort. Obviously avoid alcohol as this is an irritant for your stomach. The above medications will hopefully help with your symptoms. Go to [facility] from here as they are excepting you for detox and will be awaiting you. They realize they will be a slight interval of time just getting from here to there. The address is: [facility] [address] [place] [address] [facility] every 4-6 hours if needed for withdrawal. The [facility] will be providing you with the detox protocol/medicines that commonly use.
[2023-02-23 08:30] LABS: BASOPHILS % (AUTO) 0.3 %; EOSINOPHILS % (AUTO) 0.1 %; HCT - HEMATOCRIT 39.5 % (42.0-52.0); HGB - HEMOGLOBIN 13.9 g/dL (14.0-18.0); LYMPHOCYTES # (AUTO) 1.4 10^3/uL (1.5-3.5); LYMPHOCYTES % (AUTO) 11.6 %; MEAN CORPUSCULAR HEMOGLOBIN 30.8 pg (27.0-31.0); MEAN CORPUSCULAR HGB CONC 35.2 g/dL (32.0-36.0); MEAN CORPUSCULAR VOLUME 87.4 fL (80.0-94.0); MEAN PLATELET VOLUME 8.8 fL (7.4-11.4); MONOCYTES # (AUTO) 0.7 10^3/uL (0.0-1.0); MONOCYTES % (AUTO) 5.3 %; NEUTROPHILS # (AUTO) 10.2 10^3/uL (1.5-6.6); NEUTROPHILS % (AUTO) 82.4 %; PLT - PLATELET COUNT 165 10^3/uL (130-450); RED BLOOD COUNT 4.52 10^6/uL (4.70-6.10); RED CELL DISTRIBUTION WIDTH 11.9 % (12.0-15.0); WHITE BLOOD COUNT 12.4 x10^3/uL (4.8-10.8)
[2023-02-23] MEDS: SODIUM CHLORIDE 0.9% 1,000 ML IV STA ×2 (08:34→11:05)
[2023-02-23] MEDS: ONDANSETRON 4 MG/2 ML VIAL IVP STA (08:35)
[2023-02-23] MEDS: LORazepam 2 MG/ML VIAL IVP STA (08:36)
[2023-02-23] MEDS: FAMOTIDINE 20 MG/2 ML VIAL IVP STA (08:36)
[2023-02-23] MEDS: THIAMINE INJ 100 MG, FOLIC ACID INJ 1 MG in SODIUM CHLORIDE 0.9% 1,000 ML IV STA (08:38)
[2023-02-23 08:47] LABS: ALBUMIN/GLOBULIN RATIO 1.3 (1.0-2.2); CALCIUM 8.3 mg/dL (8.5-10.3); CREATININE 0.6 mg/dL (0.6-1.2); ETOH - ETHANOL 150.7 mg/dL; MAGNESIUM 1.9 mg/dL (1.7-2.8); POTASSIUM 3.7 mmol/L (3.5-5.0); TOTAL PROTEIN 7.1 g/dL (6.7-8.2)
[2023-02-23] MEDS: chlordiazePOXIDE 25 MG CAPSULE PO STA ×3 (11:03→15:14)
[2023-02-23] MEDS: PHENobarbitaL 32.4 MG TABLET PO STA (15:14)
[2023-02-23 16:24] VITALS: BP 140/59
[2023-02-23] MEDS: chlordiazePOXIDE 25 MG CAPSULE PO PRN (16:24)
== END 2023-02-23 16:28 | disposition home or self-care (01) ==
LOC: ED 07:55
DX: K29.20 Alcoholic gastritis without bleeding (principal); F10.10 Alcohol abuse, uncomplicated; Y90.6 Blood alcohol level of 120-199 mg/100 ml; R11.2 Nausea with vomiting, unspecified; Z20.822 Contact with and (suspected) exposure to COVID-19
CPT/HCPCS: 36415; 80053; 80320; 83690; 83735; 85025; 87635; 96365; 96366; 96375; 99283; A9270; J2060; J3411

== ENCOUNTER 2023-07-15 20:20 | Outpatient (CLI) | payer MEDICAID | END 2023-07-15 20:21 | disposition critical access hospital (66) | LOC: EMS 20:20 | DX: R10.13 Epigastric pain (principal); R10.11 Right upper quadrant pain; R10.12 Left upper quadrant pain; R23.1 Pallor; R23.2 Flushing; S00.31XA Abrasion of nose, initial encounter; R11.2 Nausea with vomiting, unspecified; F10.90 Alcohol use, unspecified, uncomplicated; F12.90 Cannabis use, unspecified, uncomplicated; F13.90 Sedative, hypnotic, or anxiolytic use, unspecified, uncomplicated; M79.18 Myalgia, other site; R19.7 Diarrhea, unspecified; X58.XXXA Exposure to other specified factors, initial encounter | CPT/HCPCS: A0425; A0427; A0999 ==

== ENCOUNTER 2023-07-15 20:53 | Emergency (ER) | payer MEDICAID, OTHER ==
[2023-07-15 21:12] VITALS: BP 160/85; O2SAT 95
[2023-07-15 21:15] LABS: BASOPHILS # (AUTO) 0.1 10^3/uL (0.0-0.1); BASOPHILS % (AUTO) 0.6 %; EOSINOPHILS % (AUTO) 0.3 %; HCT - HEMATOCRIT 42.7 % (42.0-52.0); HGB - HEMOGLOBIN 14.6 g/dL (14.0-18.0); LYMPHOCYTES # (AUTO) 2.3 10^3/uL (1.5-3.5); LYMPHOCYTES % (AUTO) 28.7 %; MEAN CORPUSCULAR HEMOGLOBIN 30.7 pg (27.0-31.0); MEAN CORPUSCULAR HGB CONC 34.2 g/dL (32.0-36.0); MEAN CORPUSCULAR VOLUME 89.9 fL (80.0-94.0); MEAN PLATELET VOLUME 8.9 fL (7.4-11.4); MONOCYTES # (AUTO) 0.4 10^3/uL (0.0-1.0); MONOCYTES % (AUTO) 5.1 %; NEUTROPHILS # (AUTO) 5.1 10^3/uL (1.5-6.6); NEUTROPHILS % (AUTO) 64.8 %; PLT - PLATELET COUNT 212 10^3/uL (130-450); RED BLOOD COUNT 4.75 10^6/uL (4.70-6.10); RED CELL DISTRIBUTION WIDTH 11.8 % (12.0-15.0); WHITE BLOOD COUNT 7.9 x10^3/uL (4.8-10.8)
[2023-07-15] MEDS ORDERED: SODIUM CHLORIDE 0.9% 1,000 ML IV STA ×2 (21:23)
--- NOTE | 2023-07-15 21:26 | ED Physician Documentation ---
History of Present Illness - Stated complaint Stated Complaint: NAUSEA/VOMITING - Chief complaint Chief Complaint: MHE - History obtained from History obtained from: Patient - History of Present Illness Pain level max: 0 Pain level now: 0 - Additonal information Additional information: 23-year-old male presents to the emergency department stating that he has been drinking alcohol for the past 10 days. He states he is interested in going to detox or rehab. He had nausea and vomiting earlier today, no abdominal pain now. No nausea or vomiting now. States his last drink was about 3 hours ago. Denies being on medications at home. Last used marijuana yesterday. Denies any other drug use. Nursing note states that the patient endorsed suicidal ideation, he denies being suicidal to me. He states he does not feel depressed or suicidal currently. Has no plan. Review of Systems Constitutional: denies: Fever, Chills Respiratory: denies: Dyspnea, Cough GI: denies: Vomiting, Diarrhea Skin: denies: Rash Musculoskeletal: denies: Neck pain, Back pain Neurologic: denies: Headache PD PAST MEDICAL HISTORY - Past Medical History Cardiovascular: None Respiratory: None Neuro: None Endocrine/Autoimmune: None GI: Pancreatitis : None HEENT: None Psych: None Musculoskeletal: None Derm: None - Past Surgical History Past Surgical History: No - Present Medications Home Medications: Ambulatory Orders Medication Instructions Recorded Confirmed No Known Home Medications 07/15/23 07/15/23 - Allergies Allergies/Adverse Reactions: Allergies Allergy/AdvReac Type Severity Reaction Status Date / Time No Known Drug Allergies Allergy Verified 07/15/23 21:06 - Social History Does the pt smoke?: No Smoking Status: Never smoker Does the pt drink ETOH?: Yes Does the pt have substance abuse?: Yes - Immunizations Immunizations are current?: Yes - POLST Patient has POLST: No PD ED PE NORMAL - Vitals Vital signs reviewed: Yes - General General: Alert and oriented X 3, No acute distress - HEENT HEENT: Moist mucous membranes - Neck Neck: Supple, no meningeal sign - Cardiac Cardiac: RRR, Strong equal pulses - Respiratory Respiratory: No respiratory distress, Clear bilaterally - Abdomen Abdomen: Soft, Non tender, Non distended - Derm Derm: Warm and dry - Neuro Neuro: Alert and oriented X 3 - Psych Psych: Normal mood, Normal affect Results - Vitals Vitals: Vital Signs - 24 hr 07/15/23 21:02 Temperature 37.1 C Heart Rate 142 H Respiratory 21 Rate Blood Pressure 160/85 H O2 Saturation 95 Oxygen O2 Source Room air - Labs Labs: Laboratory Tests 07/15/23 07/15/23 07/15/23 20:19 20:19 21:36 WBC 7.9 RBC 4.75 Hgb 14.6 Hct 42.7 MCV 89.9 MCH 30.7 MCHC 34.2 RDW 11.8 L Plt Count 212 MPV 8.9 Neut # (Auto) 5.1 Lymph # (Auto) 2.3 [place] # (Auto) 0.4 Eos # (Auto) 0.0 Baso # (Auto) 0.1 Absolute Nucleated RBC 0.00 Nucleated RBC % 0.0 Sodium 139 Potassium 3.9 Chloride 105 Carbon Dioxide 26 Anion Gap 8.0 BUN 11 Creatinine 0.8 Estimated GFR (MDRD) 118 Glucose 129 H Calcium 7.8 L Magnesium 1.8 Total Bilirubin 0.4 AST 24 ALT 19 Alkaline Phosphatase 76 Total Protein 6.4 Albumin 4.0 Globulin 2.4 Albumin/Globulin Ratio 1.7 Lipase 14 TSH 0.29 L Urine Color YELLOW Urine Clarity CLEAR Urine pH 7.0 Ur Specific [place] 1.010 Urine Protein NEGATIVE Urine Glucose (UA) NEGATIVE Urine Ketones NEGATIVE Urine Occult Blood NEGATIVE Urine Nitrite NEGATIVE Urine Bilirubin NEGATIVE Urine Urobilinogen 1 (NORMAL) Ur Leukocyte Esterase NEGATIVE Ur Microscopic Review NOT INDICATED Urine Culture Comments NOT INDICATED Salicylates < 1.5 Urine Opiates Screen NEGATIVE Ur Oxycodone Screen NEGATIVE Urine Methadone Screen NEGATIVE Ur Propoxyphene Screen NEGATIVE Acetaminophen 0.2 Ur Barbiturates Screen NEGATIVE Ur Tricyclics Screen NEGATIVE Ur Phencyclidine Scrn NEGATIVE Ur Amphetamine Screen NEGATIVE U Methamphetamines Scrn NEGATIVE U Benzodiazepines Scrn NEGATIVE Urine Cocaine Screen NEGATIVE U Cannabinoids Screen NEGATIVE Ethyl Alcohol 318.5 PD Medical Decision Making - ED course Complexity details: reviewed results, considered differential, d/w patient ED course: While the patient was waiting in the emergency department he pulled out his cell phone, called a cab and ripped out his IV, he then ambulated with a steady gait out of the emergency department under his own power. He adamantly denies feeling suicidal or homicidal. He is not on an CADY. His speech is clear and he was ambulating with a steady gait. Next of kin will be notified by the nursing staff. This document was made in part using voice recognition software. While efforts are made to proofread this document, sound alike and grammatical errors may occur. Departure - Departure Disposition: ED [place] Clinical Impression: Alcohol intoxication Qualifiers: Complication of substance-induced condition: uncomplicated Qualified Code(s): F10.920 - Alcohol use, unspecified with intoxication, uncomplicated Condition: Stable Forms: PCP List Discharge Date/Time: 07/15/23 21:45
[2023-07-15 21:30] LABS: ACETAMINOPHEN 0.2 ug/mL; ALBUMIN/GLOBULIN RATIO 1.7 (1.0-2.2); ALKALINE PHOSPHATASE 76 IU/L (42-121); ALT ALANINE AMINOTRANSFERASE 19 IU/L (10-60); AST ASPARTATE AMINOTRANSFERASE 24 IU/L (10-42); BILIRUBIN,TOTAL 0.4 mg/dL (0.2-1.0); BUN - BLOOD UREA NITROGEN 11 mg/dL (6-20); CALCIUM 7.8 mg/dL (8.5-10.3); CARBON DIOXIDE - CO2 26 mmol/L (21-32); CHLORIDE 105 mmol/L (101-111); CREATININE 0.8 mg/dL (0.6-1.3); ETOH - ETHANOL 318.5 mg/dL; GFR - MDRD 118 (>89); GLUCOSE 129 mg/dL (74-104); LIPASE 14 U/L (11-82); MAGNESIUM 1.8 mg/dL (1.7-2.3); POTASSIUM 3.9 mmol/L (3.5-4.5); SODIUM 139 mmol/L (135-145); TOTAL PROTEIN 6.4 g/dL (6.4-8.9)
[2023-07-15 21:32] LABS: SALICYLATE < 1.5 mg/dL
[2023-07-15 21:43] LABS: THYROID STIMULATING HORMONE 0.29 uIU/mL (0.34-5.60)
[2023-07-15 21:44] LABS: MUDS CUTOFF CONCENTRATIONS CUTOFF CONC BELOW:
[2023-07-15 21:54] LABS: BILIRUBIN,URINE NEGATIVE (NEGATIVE); GLUCOSE, URINE (UA) NEGATIVE (NEGATIVE); KETONES,URINE (UA) NEGATIVE (NEGATIVE); LEUKOCYTE ESTERASE, URINE NEGATIVE (NEGATIVE); NITRITE,URINE NEGATIVE (NEGATIVE); OCCULT BLOOD,URINE NEGATIVE (NEGATIVE); PROTEIN,URINE NEGATIVE (NEGATIVE); UROBILINOGEN,URINE 1 (NORMAL) E.U./dL (NORMAL)
[2023-07-15 21:56] LABS: CLARITY,URINE CLEAR (CLEAR)
[2023-07-15 22:05] LABS: AMPHETAMINE SCREEN,URINE NEGATIVE (NEGATIVE); BARBITURATE SCREEN,UR NEGATIVE (NEGATIVE); BENZODIAZEPINES SCREEN, URINE NEGATIVE (NEGATIVE); COCAINE SCREEN URINE NEGATIVE (NEGATIVE); METHADONE SCREEN, URINE NEGATIVE (NEGATIVE); METHAMPHETAMINES SCREEN, URINE NEGATIVE (NEGATIVE); OPIATE SCREEN, URINE NEGATIVE (NEGATIVE); OXYCODONE SCREEN, URINE NEGATIVE (NEGATIVE); PROPOXYPHENE SCREEN, URINE NEGATIVE (NEGATIVE); THC CANNABINOID SCREEN, URINE NEGATIVE (NEGATIVE); TRICYCLIC ANTIDEPRESSANT,URINE NEGATIVE (NEGATIVE)
== END 2023-07-15 21:45 | disposition left against medical advice (07) ==
LOC: EDUNIT# → ED 20:53
DX: F10.129 Alcohol abuse with intoxication, unspecified (principal); Y90.8 Blood alcohol level of 240 mg/100 ml or more
CPT/HCPCS: 36415; 80053; 80306; 80307; 80320; 80329; 81001; 81003; 83690; 83735; 84443; 85025; 87086; 99281; 99283

== ENCOUNTER 2023-07-16 02:05 | Outpatient (CLI) | payer MEDICAID | END 2023-07-16 02:06 | disposition critical access hospital (66) | LOC: EMS 02:05 | DX: F10.20 Alcohol dependence, uncomplicated (principal); R11.10 Vomiting, unspecified | CPT/HCPCS: A0425; A0429; A0999 ==

== ENCOUNTER 2023-07-16 02:37 | Emergency (ER) | payer MEDICAID, OTHER ==
[2023-07-16] MEDS ORDERED: SODIUM CHLORIDE 0.9% 1,000 ML IV STA (02:55)
[2023-07-16 03:09] LABS: BASOPHILS % (AUTO) 0.4 %; EOSINOPHILS % (AUTO) 0.3 %; HCT - HEMATOCRIT 41.5 % (42.0-52.0); HGB - HEMOGLOBIN 14.2 g/dL (14.0-18.0); LYMPHOCYTES # (AUTO) 2.2 10^3/uL (1.5-3.5); LYMPHOCYTES % (AUTO) 21.5 %; MEAN CORPUSCULAR HEMOGLOBIN 31.1 pg (27.0-31.0); MEAN CORPUSCULAR HGB CONC 34.2 g/dL (32.0-36.0); MEAN CORPUSCULAR VOLUME 90.8 fL (80.0-94.0); MEAN PLATELET VOLUME 8.7 fL (7.4-11.4); MONOCYTES # (AUTO) 0.5 10^3/uL (0.0-1.0); MONOCYTES % (AUTO) 5.1 %; NEUTROPHILS # (AUTO) 7.4 10^3/uL (1.5-6.6); NEUTROPHILS % (AUTO) 72.5 %; PLT - PLATELET COUNT 202 10^3/uL (130-450); RED BLOOD COUNT 4.57 10^6/uL (4.70-6.10); WHITE BLOOD COUNT 10.2 x10^3/uL (4.8-10.8)
[2023-07-16 03:24] LABS: ALBUMIN 4.1 g/dL (3.2-5.5); ALBUMIN/GLOBULIN RATIO 1.6 (1.0-2.2); ALKALINE PHOSPHATASE 77 IU/L (42-121); ALT ALANINE AMINOTRANSFERASE 20 IU/L (10-60); AST ASPARTATE AMINOTRANSFERASE 24 IU/L (10-42); BILIRUBIN,TOTAL 0.4 mg/dL (0.2-1.0); BUN - BLOOD UREA NITROGEN 11 mg/dL (6-20); CALCIUM 8.3 mg/dL (8.5-10.3); CARBON DIOXIDE - CO2 26 mmol/L (21-32); CHLORIDE 104 mmol/L (101-111); CK- CREATINE KINASE 277 IU/L (30-223); CREATININE 0.8 mg/dL (0.6-1.3); ETOH - ETHANOL 233.5 mg/dL; GFR - MDRD 118 (>89); GLUCOSE 110 mg/dL (74-104); LIPASE 21 U/L (11-82); MAGNESIUM 1.8 mg/dL (1.7-2.3); POTASSIUM 3.7 mmol/L (3.5-4.5); SODIUM 140 mmol/L (135-145); TOTAL PROTEIN 6.6 g/dL (6.4-8.9)
[2023-07-16 03:31] LABS: SALICYLATE < 1.5 mg/dL
[2023-07-16 03:36] LABS: MUDS CUTOFF CONCENTRATIONS CUTOFF CONC BELOW:
[2023-07-16 03:38] LABS: BILIRUBIN,URINE NEGATIVE (NEGATIVE); GLUCOSE, URINE (UA) NEGATIVE (NEGATIVE); KETONES,URINE (UA) NEGATIVE (NEGATIVE); LEUKOCYTE ESTERASE, URINE NEGATIVE (NEGATIVE); NITRITE,URINE NEGATIVE (NEGATIVE); OCCULT BLOOD,URINE NEGATIVE (NEGATIVE); PROTEIN,URINE NEGATIVE (NEGATIVE); UROBILINOGEN,URINE 1 (NORMAL) E.U./dL (NORMAL)
[2023-07-16 03:39] LABS: CLARITY,URINE CLEAR (CLEAR)
[2023-07-16 03:47] LABS: ACETAMINOPHEN < 0.1 ug/mL
[2023-07-16 03:48] LABS: AMPHETAMINE SCREEN,URINE NEGATIVE (NEGATIVE); BARBITURATE SCREEN,UR NEGATIVE (NEGATIVE); BENZODIAZEPINES SCREEN, URINE NEGATIVE (NEGATIVE); COCAINE SCREEN URINE NEGATIVE (NEGATIVE); METHADONE SCREEN, URINE NEGATIVE (NEGATIVE); METHAMPHETAMINES SCREEN, URINE NEGATIVE (NEGATIVE); OPIATE SCREEN, URINE NEGATIVE (NEGATIVE); OXYCODONE SCREEN, URINE NEGATIVE (NEGATIVE); PROPOXYPHENE SCREEN, URINE NEGATIVE (NEGATIVE); THC CANNABINOID SCREEN, URINE NEGATIVE (NEGATIVE); TRICYCLIC ANTIDEPRESSANT,URINE NEGATIVE (NEGATIVE)
--- NOTE | 2023-07-16 03:49 | ED Physician Documentation ---
PD HPI MHE - Stated complaint Stated Complaint: ETOH/VOMITING - Chief complaint Chief Complaint: MHE - History obtained from History obtained from: Patient - Additional information Additional information: Patient is a 23-year-old male presenting for evaluation wanting help with alcohol use. Patient was here earlier today in the emergency department and being evaluated when he left prior to disposition. He stated he thought he could just trying to help stop on his own but as soon as he went home he started drinking again and drink another 7-8 beers. He called 911 again this evening because he wants to seek help for his alcohol use. He denies ever going to detox in the past. He does report having had suicidal thoughts for the past few days. He currently does not feel suicidal. He has at times thought of a plan to get pills and overdose. He states he does not have pills of his own but does know how to get pills from others and feels that he has access to pills he could take to hurt himself. He states that he has tried to hurt himself in the past by jumping into a harden. He does not see a therapist but states that people of told him that he should. He states he uses alcohol to manage his feelings because it makes him feel happy when he drinks.He has recently used Adderall. Denies other drug use. Review of Systems Constitutional: denies: Fever Cardiac: denies: Chest pain / pressure Respiratory: denies: Dyspnea GI: denies: Abdominal Pain PD PAST MEDICAL HISTORY - Past Medical History Past Medical History: Yes Cardiovascular: None Respiratory: None Neuro: None Endocrine/Autoimmune: None GI: Pancreatitis : None HEENT: None Psych: None Musculoskeletal: None Derm: None - Past Surgical History Past Surgical History: No - Present Medications Home Medications: Ambulatory Orders Medication Instructions Recorded Confirmed No Known Home Medications 07/15/23 07/15/23 - Allergies Allergies/Adverse Reactions: Allergies Allergy/AdvReac Type Severity Reaction Status Date / Time No Known Drug Allergies Allergy Verified 07/16/23 02:48 - Social History Does the pt smoke?: No Smoking Status: Never smoker Does the pt drink ETOH?: Yes Does the pt have substance abuse?: No - Immunizations Immunizations are current?: Yes - POLST Patient has POLST: No PD ED PE NORMAL - General General: Alert and oriented X 3, No acute distress, Well developed/nourished - HEENT HEENT: Atraumatic, Moist mucous membranes, Pharynx benign - Neck Neck: Supple, no meningeal sign - Cardiac Cardiac: Other (Tachycardic, regular rhythm) - Respiratory Respiratory: No respiratory distress, Clear bilaterally - Abdomen Abdomen: Normal bowel sounds, Soft, Non tender, Non distended - Derm Derm: Warm and dry - Neuro Neuro: Normal speech Results - Vitals Vitals: Vital Signs - 24 hr 07/16/23 07/16/23 07/16/23 02:45 03:33 05:00 Temperature 36.7 C Heart Rate 126 H 113 H 118 H Respiratory 18 18 Rate Blood Pressure 156/79 H 160/86 H O2 Saturation 98 100 07/16/23 07:03 Temperature Heart Rate 93 Respiratory 18 Rate Blood Pressure O2 Saturation 98 Oxygen O2 Source Room air - Labs Labs: Laboratory Tests 07/16/23 07/16/23 07/16/23 03:03 03:03 03:21 WBC 10.2 RBC 4.57 L Hgb 14.2 Hct 41.5 L MCV 90.8 MCH 31.1 H MCHC 34.2 RDW 12.0 Plt Count 202 MPV 8.7 Neut # (Auto) 7.4 H Lymph # (Auto) 2.2 [place] # (Auto) 0.5 Eos # (Auto) 0.0 Baso # (Auto) 0.0 Absolute Nucleated RBC 0.00 Nucleated RBC % 0.0 Sodium 140 Potassium 3.7 Chloride 104 Carbon Dioxide 26 Anion Gap 10.0 BUN 11 Creatinine 0.8 Estimated GFR (MDRD) 118 Glucose 110 H Calcium 8.3 L Magnesium 1.8 Total Bilirubin 0.4 AST 24 ALT 20 Alkaline Phosphatase 77 Total Creatine Kinase 277 H Total Protein 6.6 Albumin 4.1 Globulin 2.5 Albumin/Globulin Ratio 1.6 Lipase 21 Free T4 Direct 0.65 Urine Color YELLOW Urine Clarity CLEAR Urine pH 7.0 Ur Specific [place] 1.010 Urine Protein NEGATIVE Urine Glucose (UA) NEGATIVE Urine Ketones NEGATIVE Urine Occult Blood NEGATIVE Urine Nitrite NEGATIVE Urine Bilirubin NEGATIVE Urine Urobilinogen 1 (NORMAL) Ur Leukocyte Esterase NEGATIVE Ur Microscopic Review NOT INDICATED Urine Culture Comments NOT INDICATED Salicylates < 1.5 Urine Opiates Screen NEGATIVE Ur Oxycodone Screen NEGATIVE Urine Methadone Screen NEGATIVE Ur Propoxyphene Screen NEGATIVE Acetaminophen < 0.1 Ur Barbiturates Screen NEGATIVE Ur Tricyclics Screen NEGATIVE Ur Phencyclidine Scrn NEGATIVE Ur Amphetamine Screen NEGATIVE U Methamphetamines Scrn NEGATIVE U Benzodiazepines Scrn NEGATIVE Urine Cocaine Screen NEGATIVE U Cannabinoids Screen NEGATIVE Ethyl Alcohol 233.5 SARS-CoV-2 (PCR) 07/16/23 03:40 WBC RBC Hgb Hct MCV MCH MCHC RDW Plt Count MPV Neut # (Auto) Lymph # (Auto) [place] # (Auto) Eos # (Auto) Baso # (Auto) Absolute Nucleated RBC Nucleated RBC % Sodium Potassium Chloride Carbon Dioxide Anion Gap BUN Creatinine Estimated GFR (MDRD) Glucose Calcium Magnesium Total Bilirubin AST ALT Alkaline Phosphatase Total Creatine Kinase Total Protein Albumin Globulin Albumin/Globulin Ratio Lipase Free T4 Direct Urine Color Urine Clarity Urine pH Ur Specific [place] Urine Protein Urine Glucose (UA) Urine Ketones Urine Occult Blood Urine Nitrite Urine Bilirubin Urine Urobilinogen Ur Leukocyte Esterase Ur Microscopic Review Urine Culture Comments Salicylates Urine Opiates Screen Ur Oxycodone Screen Urine Methadone Screen Ur Propoxyphene Screen Acetaminophen Ur Barbiturates Screen Ur Tricyclics Screen Ur Phencyclidine Scrn Ur Amphetamine Screen U Methamphetamines Scrn U Benzodiazepines Scrn Urine Cocaine Screen U Cannabinoids Screen Ethyl Alcohol SARS-CoV-2 (PCR) NOT DETECTED PD Medical Decision Making - ED course Complexity details: reviewed results, re-evaluated patient, d/w patient ED course: Pt with history of ETOH abuse requesting detox. Seen earlier today for same reason and left prior to disposition. Denies current SI because he is here in ED but reports some suicidal thoughts in recent days with plans to take pills. Mental health screening labs obtained. ETOH elevated. Plan to allow patient to sober and have SW see him. He did start having some withdrawal symptoms and was given PO ativan. Pt signed out at shift change to oncoming provider. Departure - Departure Clinical Impression: Alcohol abuse Condition: Good Forms: PCP List
[2023-07-16] MEDS ORDERED: LORazepam 1 MG TABLET PO STA ×3 (04:04→11:33)
--- NOTE | 2023-07-16 09:10 | ED Physician Documentation ---
ED Addendum - Addendum Addendum: 07/16/23 09:09 The patient was sleeping after receiving some medication to help with withdrawal couple of hours ago. He was easy to arouse. He was conversant and appropriate. Social work also was with me and met and talked with him for several minutes. He denied any suicidal ideation at this point and is primarily focused on detox from alcohol. His labs are good without any notable abnormalities. He does have a long history of alcohol use. We will watch for signs of withdrawal but at this point he is not having any shakiness nausea or sweatiness and his heart rate is good. He was given information on the detox facilities and he is about to call the 1 in [place] and see if they have beds available. The patient is medically clear at this time. Diagnoses: 1. Alcohol use disorder
[2023-07-16] MEDS ORDERED: PHENobarbitaL 32.4 MG TABLET PO STA (11:32)
[2023-07-16 11:48] VITALS: BP 120/75; O2SAT 96
== END 2023-07-16 12:20 | disposition home or self-care (01) ==
LOC: EDUNIT# → ED 02:37
DX: F10.139 Alcohol abuse with withdrawal, unspecified (principal); Y90.7 Blood alcohol level of 200-239 mg/100 ml; Z11.52 Encounter for screening for COVID-19
CPT/HCPCS: 36415; 80053; 80306; 80307; 80320; 80329; 81003; 82550; 83690; 83735; 84439; 85025; 87635; 99283; 99284; A9270; J8499; 81001; 87086

== ENCOUNTER 2023-08-12 11:54 | Outpatient (CLI) | payer MEDICAID, OTHER ==
[2023-08-12 15:15] LABS: BASOPHILS % (AUTO) 0.6 %; EOSINOPHILS % (AUTO) 0.8 %; HCT - HEMATOCRIT 47.6 % (42.0-52.0); LYMPHOCYTES # (AUTO) 1.6 10^3/uL (1.5-3.5); LYMPHOCYTES % (AUTO) 32.2 %; MEAN CORPUSCULAR HEMOGLOBIN 31.1 pg (27.0-31.0); MEAN CORPUSCULAR HGB CONC 33.6 g/dL (32.0-36.0); MEAN CORPUSCULAR VOLUME 92.6 fL (80.0-94.0); MEAN PLATELET VOLUME 10.3 fL (7.4-11.4); MONOCYTES # (AUTO) 0.5 10^3/uL (0.0-1.0); MONOCYTES % (AUTO) 9.1 %; NEUTROPHILS # (AUTO) 2.8 10^3/uL (1.5-6.6); NEUTROPHILS % (AUTO) 57.1 %; PLT - PLATELET COUNT 234 10^3/uL (130-450); RED BLOOD COUNT 5.14 10^6/uL (4.70-6.10); RED CELL DISTRIBUTION WIDTH 12.4 % (12.0-15.0)
[2023-08-12 15:37] LABS: ALBUMIN 4.8 g/dL (3.2-5.5); ALBUMIN/GLOBULIN RATIO 1.8 (1.0-2.2); CALCIUM 9.9 mg/dL (8.5-10.3); CREATININE 0.9 mg/dL (0.6-1.3); TOTAL PROTEIN 7.5 g/dL (6.4-8.9)
[2023-08-12 18:06] LABS: THYROID STIMULATING HORMONE 0.5 uIU/mL (0.34-5.60)
== END 2023-08-12 11:55 | disposition home or self-care (01) ==
LOC: LAB.S 11:54
PROVIDERS: ATTEND Physician Assistant Medical
DX: F41.9 Anxiety disorder, unspecified (principal); F32.A Depression, unspecified; Z13.9 Encounter for screening, unspecified
CPT/HCPCS: 36415; 80053; 84443; 85025

== ENCOUNTER 2024-01-25 12:28 | Outpatient (CLI) | payer OTHER | END 2024-01-25 23:59 | disposition critical access hospital (66) | LOC: EMS 12:28 | DX: R41.0 Disorientation, unspecified (principal); F10.90 Alcohol use, unspecified, uncomplicated; V89.2XXA Person injured in unspecified motor-vehicle accident, traffic, initial encounter; Y92.413 State road as the place of occurrence of the external cause | CPT/HCPCS: A0425; A0429 ==

== ENCOUNTER 2024-01-25 12:40 | Emergency (ER) | payer OTHER ==
[2024-01-25 12:55] VITALS: BP 132/80; O2SAT 97
[2024-01-25] MEDS: ACETAMINOPHEN 325 MG TABLET PO STA (13:20)
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
== END 2024-01-25 14:26 | disposition home or self-care (01) ==
LOC: EDUNIT# → ED 12:40
DX: S16.1XXA Strain of muscle, fascia and tendon at neck level, initial encounter (principal); V89.2XXA Person injured in unspecified motor-vehicle accident, traffic, initial encounter; Y92.410 Unspecified street and highway as the place of occurrence of the external cause; Z79.899 Other long term (current) drug therapy
CPT/HCPCS: 99284